=== PATIENT | female | born 1980 | race African-American/Black ===

== ENCOUNTER 2023-11-23 05:23 | Emergency (ER) | payer MEDICARE, SELFPAY ==
--- NOTE | ~2023-11-23 | CT_ITS ---
Non-contrast CT scan of the Abdomen and Pelvis Clinical indication: Left flank pain Technique: 2.5 mm axial scans were obtained through the abdomen and pelvis without intravenous or or al contrast. Dose reduction technique was used on this scan by utilizing automated exposure control a nd iterative reconstruction technique. The dose-length product (DLP) was 1408.72 mGy-cm. Findings: Images through the lung bases reveal no abnormalities. There is no evidence of renal or ureteral calculi. The kidneys and the ureters are nondilated. The liver, spleen, pancreas, gallbladder, and adrenals appear normal. There is no aortic aneurysm. There is no evidence of bowel obstruction. Images through the pelvis were performed. There is no evidence of ascites or lymphadenopathy. Urinary bladder unremarkable. No pelvic mass seen. Impression: No significant abnormality seen. Reviewed, dictated and finalized at [facility]. Impression: No significant abnormality seen.
[2023-11-23 05:30] VITALS: BP 150/93; PULSE 78; RESP 15; TEMP 36.8; O2SAT 100
--- NOTE | 2023-11-23 05:49 | ED.GENADULT ---
HPI - General Adult General Chief complaint: Abdominal Pain Stated complaint: left flank pain Time Seen by Provider: 11/23/23 05:39 History of Present Illness HPI narrative: Patient 43-year-old female who presents emergency department with chief complaint of left-sided flank pain. Patient reports that started having pain yesterday reports that some nausea but no vomiting reports that her last bowel movement was about 2 days ago patient reports she is currently on her menstrual cycle. The patient denies fever reports no prior history of kidney stones. Related Data Allergies Allergy/AdvReac Type Severity Reaction Status Date / Time No Known Allergies Allergy Verified 11/23/23 05:56 Review of Systems Review of Systems: A 10 system review of systems was completed on the patient and is negative except for what is stated in the HPI. Nursing and ancillary documentation was reviewed. Exam Narrative: GENERAL: Well-appearing, well-nourished, and in no acute distress. HEAD: Normocephalic, atraumatic. EYES: PERRLA and EOMI. ENT: Nares clear, no rhinorrhea or epistaxis. Mucous membranes moist. NECK: Supple. CHEST: Clear to auscultation. No respiratory distress. HEART: Regular rate and rhythm. No murmur heard. Normal peripheral pulses. ABDOMEN: Soft, nontender, nondistended, normal active bowel sounds. Flank: Left CVA tenderness EXTREMITIES: Normal range of motion. No edema. SKIN: Warm, dry, no rash. NEURO: No focal deficits. Alert and oriented x3. PSYCH: Normal mood and affect. Course Vital Signs Vital signs: Vital Signs Temperature 36.8 C 11/23/23 05:30 Pulse Rate 78 11/23/23 05:30 Respiratory Rate 15 11/23/23 05:30 Blood Pressure 150/93 H 11/23/23 05:30 Pulse Oximetry 100 11/23/23 05:30 Oxygen Delivery Room Air 11/23/23 05:30 Temperature 36.8 C 11/23/23 05:30 Pulse Rate 71 11/23/23 06:27 Respiratory Rate 15 11/23/23 06:27 Blood Pressure 141/88 H 11/23/23 06:27 Pulse Oximetry 99 11/23/23 06:27 Oxygen Delivery Room Air 11/23/23 05:30 Medical Decision Making MDM Narrative Medical decision making narrative: Differential diagnosis includes ureterolithiasis, UTI, pyelonephritis, intra-abdominal infection, colitis, diverticulitis Laboratory studies were obtained on the patient which showed a white count of 5.1 hemoglobin is 9.9 electrolytes are within normal limits urinalysis showed 2+ leukocyte esterase 21-50 white blood cells 1+ bacteria CT scan of the abdomen pelvis showed no acute abnormality Patient's pain was improved Patient given a g Rocephin in the emergency department and will be discharged home on Keflex. Vital Signs Vital Signs: Vital Signs Temperature 36.8 C 11/23/23 05:30 Pulse Rate 78 11/23/23 05:30 Respiratory Rate 15 11/23/23 05:30 Blood Pressure 150/93 H 11/23/23 05:30 Pulse Oximetry 100 11/23/23 05:30 Oxygen Delivery Room Air 11/23/23 05:30 Temperature 36.8 C 11/23/23 05:30 Pulse Rate 71 11/23/23 06:27 Respiratory Rate 15 11/23/23 06:27 Blood Pressure 141/88 H 11/23/23 06:27 Pulse Oximetry 99 11/23/23 06:27 Oxygen Delivery Room Air 11/23/23 05:30 Lab Data 11/23/23 05:49 11/23/23 05:49 Labs: Lab Results 11/23/23 11/23/23 11/23/23 Range/Units 05:48 05:49 06:12 WBC 5.1 (4.5-10.0) K/mm3 RBC 3.73 L (4.2-5.4) M/mm3 Hgb 9.9 L (12.0-15.0) g/dL Hct 31.7 L (37.0-47.0) % MCV 85.0 (80-100) fl MCH 26.5 (26-34) pg MCHC 31.2 L (32-36) g/dl RDW 17.0 H (11.5-14.5) % Plt Count 295 (150-375) k/mm3 MPV 9.9 (7.4-10.4) fl Immature Gran % (Auto) 0.6 H (0-0.5) % Neut % (Auto) 48.5 (45.5-73.1) % Lymph % (Auto) 43.2 (18.3-44.2) % Mcdowell % (Auto) 5.7 (2.6-8.5) % Eos % (Auto) 1.4 (0-4.4) % Baso % (Auto) 0.6 (0.2-1.2) % Lymph # (Auto) 2.20 (0.9-3.2) K/mm3 Mcdowell # (Auto) 0.3 (0.1-0.6) K/
[2023-11-23] MEDS: MORPHINE SULFATE (*CRX) 4 MG/ML INJ IV PUSH (05:57)
[2023-11-23] MEDS: ONDANSETRON INJ 4 MG/2 ML VIAL IV PUSH (05:57)
[2023-11-23] MEDS: SODIUM CHLORIDE 0.9% IV 1,000 ML 999 ML IV CONT (05:58)
[2023-11-23 06:02] LABS: Basophils Percent Auto 0.6 % (0.2-1.2); Eosinophils Absolute Auto 0.1 K/mm3 (0-0.3); Eosinophils Percent Auto 1.4 % (0-4.4); Hematocrit 31.7 % (37.0-47.0); Hemoglobin 9.9 g/dL (12.0-15.0); Immature Granulocyte Absolute 0.03 K/mm3 (0.00-0.031); Immature Granulocyte Percent A 0.6 % (0-0.5); Lymphocytes Percent Auto 43.2 % (18.3-44.2); Mean Corpuscular HGB Conc 31.2 g/dl (32-36); Mean Corpuscular Hemoglobin 26.5 pg (26-34); Mean Platelet Volume 9.9 fl (7.4-10.4); Monocytes Absolute Auto 0.3 K/mm3 (0.1-0.6); Monocytes Percent Auto 5.7 % (2.6-8.5); Neutrophils Absolute Auto 2.5 K/mm3 (1.3-6.7); Neutrophils Percent Auto 48.5 % (45.5-73.1); Platelet Count Result 295 k/mm3 (150-375); Red Blood Count 3.73 M/mm3 (4.2-5.4); White Blood Count 5.1 K/mm3 (4.5-10.0)
[2023-11-23 06:09] LABS: Bacteria Urine 1+ /hpf; RBC Urine >100 /hpf (0-2); Squamous Epithelial Cell Urine Occasional /hpf (Few); WBC Urine 21-50 /hpf (0-3)
[2023-11-23 06:14] LABS: BEDSIDEPREGUCG Negative
[2023-11-23 06:19] LABS: Alanine Aminotransferase 12 U/L (6-35); Albumin Level 4.3 g/dL (3.5-5.1); Alkaline Phosphatase 86 U/L (38-126); Anion Gap 10 mmol/L (4-12); Aspartate Amino Transferase 16 U/L (14-36); Bilirubin,Total 0.2 mg/dL (0.2-1.3); Blood Urea Nitrogen 9 mg/dL (7-17); Calcium 9.4 mg/dL (8.4-10.2); Carbon Dioxide 28 mmol/L (22-30); Chloride 100 mmol/L (98-107); Estimated CRCL calculation 125 ml/min; Estimated Glomerular Filt Rate > 60; Glucose 95 mg/dL (65-110); Lipase 137 U/L (23-300); Potassium 4.1 mmol/L (3.4-5.0); Sodium 138 mmol/L (137-145)
[2023-11-23 06:20] LABS: Add Urine Microscopic? YES; Appearance Urine Turbid (Clear); Bilirubin Urine 1+ (Negative); Blood Urine 3+ (Negative); Color Urine Red (Yellow); Glucose Urine UA Negative (Negative); Ketones Urine Negative (Negative); Leukocyte Esterase Ur 2+ LEU/UL (Negative); Nitrate Urine Negative (Negative); Protein Urine 2+ mg/dL (Negative); Specific Grav Ur 1.015 (1.001-1.035); Urobilinogen Urine 0.2 mg/dL (<2.0); pH Urine 7.5 (5.0-9.0)
[2023-11-23 06:27] VITALS: BP 141/88; PULSE 71; RESP 15; O2SAT 99
[2023-11-23 07:08] VITALS: BP 155/93; PULSE 67; RESP 15; O2SAT 100
[2023-11-23 07:39] VITALS: BP 142/88; PULSE 71; RESP 14; TEMP 36.6; O2SAT 98
== END 2023-11-23 07:42 | disposition home or self-care (01) ==
PROVIDERS: Emergency Provider Emergency Medicine; PCP Internal Medicine
DX: N39.0 Urinary tract infection, site not specified (principal); N12 Tubulo-interstitial nephritis, not specified as acute or chronic
CPT/HCPCS: 36415; 74176; 80053; 81001; 81025; 83690; 85025; 87086; 87088; 96361; 96365; 96375; 99284; J0696; J2270; J2405; J7030

== ENCOUNTER 2024-01-01 07:51 | Outpatient (CLI) | payer MEDICARE, SELFPAY ==
[2024-01-01 08:35] LABS: Basophils Percent Auto 0.4 % (0.2-1.2); Eosinophils Absolute Auto 0.1 K/mm3 (0-0.3); Eosinophils Percent Auto 1.4 % (0-4.4); Hematocrit 33.1 % (37.0-47.0); Hemoglobin 10.1 g/dL (12.0-15.0); Immature Granulocyte Absolute 0.02 K/mm3 (0.00-0.031); Immature Granulocyte Percent A 0.4 % (0-0.5); Lymphocytes Absolute Auto 2.13 K/mm3 (0.9-3.2); Lymphocytes Percent Auto 42.7 % (18.3-44.2); Mean Corpuscular HGB Conc 30.5 g/dl (32-36); Mean Corpuscular Volume 85.1 fl (80-100); Mean Platelet Volume 9.6 fl (7.4-10.4); Monocytes Absolute Auto 0.3 K/mm3 (0.1-0.6); Monocytes Percent Auto 5.4 % (2.6-8.5); Neutrophils Absolute Auto 2.5 K/mm3 (1.3-6.7); Neutrophils Percent Auto 49.7 % (45.5-73.1); Platelet Count Result 304 k/mm3 (150-375); Red Blood Count 3.89 M/mm3 (4.2-5.4); Red Cell Distribution Width 17.1 % (11.5-14.5)
[2024-01-01 08:47] LABS: Alanine Aminotransferase 11 U/L (6-35); Albumin Level 4.1 g/dL (3.5-5.1); Alkaline Phosphatase 70 U/L (38-126); Anion Gap 9 mmol/L (4-12); Aspartate Amino Transferase 16 U/L (14-36); Bilirubin,Total 0.1 mg/dL (0.2-1.3); Blood Urea Nitrogen 9 mg/dL (7-17); Calcium 8.9 mg/dL (8.4-10.2); Carbon Dioxide 25 mmol/L (22-30); Chloride 99 mmol/L (98-107); Cholesterol 190 mg/dL (0-200); Estimated Glomerular Filt Rate > 60; Glucose 155 mg/dL (65-110); HDL Direct 72 mg/dL; Sodium 133 mmol/L (137-145); Triglycerides 127 mg/dL (<150)
[2024-01-01 08:57] LABS: LDL Cholesterol Direct 77 mg/dL
[2024-01-01 09:09] LABS: Free T4 Free Thyroxine 0.94 ng/mL (0.78-2.19)
[2024-01-01 09:15] LABS: Thyroid Stimulating Hormone 0.941 uIU/mL (0.465-4.680); Total Triiodothyronine (T3) 1.03 NG/ML (0.97-1.69)
[2024-01-01 10:42] LABS: Hemoglobin A1C 5.8 % (<5.7)
== END 2024-01-01 07:52 | disposition home or self-care (01) ==
PROVIDERS: PCP Internal Medicine; Visit Provider Internal Medicine
DX: E78.5 Hyperlipidemia, unspecified (principal); E11.9 Type 2 diabetes mellitus without complications; E66.9 Obesity, unspecified
CPT/HCPCS: 36415; 80053; 80061; 83036; 84439; 84443; 84480; 85025

== ENCOUNTER 2024-02-04 00:35 | Day surgery (SDC) | payer MEDICARE, SELFPAY ==
[2023-12-01 13:45] VITALS: BMI 38.5
--- NOTE | 2023-12-24 09:18 | SUR.PREOP ---
Patient did not arrive at appointment time- RN called her at home. Patient states she threw up with her prep and did not complete it. Instructed to call to reschedule.
--- NOTE | 2023-12-24 10:43 | PC.NURSE ---
12/24/2023 Pt called and needed to reschedule- unable to tolerate prep and vomited a large portion of the first half. Recheduled to 02/04/2024 needs a Wednesday appt. due to work. Will order Zofran for nausea with next prep. per DR. Victoria.
[2024-02-04 10:24] VITALS: BP 153/89; PULSE 76; RESP 18; TEMP 36.9; O2SAT 100
--- NOTE | 2024-02-04 10:26 | P.PNAN_ITS ---
Anes - Initial Pre Proc Eval Procedure: Operation Date: 02/04/24 12:30 Proposed Procedures p Screening Colonoscopy - Art Field MD Date/Time: 02/04/24 10:26 Surgeon: Art Field MD Pre Op Diagnosis: Neoplasm screening Patient Data Age: 43 Gender: F Height: 1.65 m Weight: 104.7 kg Last Vital Signs Temp 36.9 C 02/04/24 10:24 Pulse 76 02/04/24 10:24 Resp 18 02/04/24 10:24 BP 153/89 H 02/04/24 10:24 Pulse Ox 100 02/04/24 10:24 O2 Del Method Room Air 02/04/24 10:24 Allergies Allergy/AdvReac Type Severity Reaction Status Date / Time No Known Allergies Allergy Verified 02/04/24 10:21 Home Medications Medication Instructions Recorded Confirmed Type atorvastatin 10 mg tablet 10 mg PO DAILY 12/01/23 02/04/24 History metformin 500 mg tablet,extended 500 mg PO BID 12/01/23 02/04/24 History release 24 hr Patient hx anesthesia problems: none Family hx anesthesia problems: none Results Review: All pre-operative results and documents have been reviewed as part of the pre- operative evaluation. [facility] Past Medical History Medical History (Updated 02/04/24 @ 10:27 by Uriel Muro MD) Diabetes Obesity Social History Social History Smoking status: Never smoker Alcohol intake: current Drinks per week: 1 Substance use: never Substance use type: does not use Living arrangements: with family Spiritual care concerns: No Anes - Eval Final PreProcedure Day of Procedure 02/04/24 10:26 Patient weight: obese Heart: regular rate and rhythm Lungs: clear to auscultation Airway: Mallampati scale class II Neurological: alert and oriented Last oral intake: >/= 8 hours ASA classification: III Emergent: no Anesthetic plan: proceed Anesthesia type and monitoring: general GIVS and standard monitoring Results Review: All pre-operative results and documents have been reviewed as part of the pre- operative evaluation. Informed Consent: The patient's anesthetic plan and its attendant risks and benefits were discussed with the patient/family/POA. Questions were solicited and answers provided to the satisfaction of the patient/family/POA.
[2024-02-04] MEDS: LACTATED RINGERS 1,000 ML 150 ML IV CONT (10:35)
[2024-02-04 10:36] LABS: Glucose Point of Care 111 mg/dl (65-105)
--- NOTE | 2024-02-04 10:51 | PM.HPGS ---
History of Present Illness History of Present Illness Consent: Risks, benefits, and alternatives have been discussed and questions answered. Patient agrees to proceed with procedure. Chief complaint: Neoplasm screening Narrative: Caroline Mix is a 43 year old female here for first colonoscopy, h/o constipation and grandparent had colon cancer Review of Systems Review of Systems: All systems reviewed & are unremarkable except as noted in HPI and below PMFSH Past Medical History Medical History (Updated 02/04/24 @ 10:53 by Art Field MD) Constipation Diabetes Obesity Social History Social History Smoking status: Never smoker Alcohol intake: current Drinks per week: 1 Substance use: never Substance use type: does not use Living arrangements: with family Spiritual care concerns: No Meds Home Medications and Allergies Home Medications Medication Instructions Recorded Confirmed Type atorvastatin 10 mg tablet 10 mg PO DAILY 12/01/23 02/04/24 History metformin 500 mg tablet,extended 500 mg PO BID 12/01/23 02/04/24 History release 24 hr Allergies Allergy/AdvReac Type Severity Reaction Status Date / Time No Known Allergies Allergy Verified 02/04/24 10:21 Vital Signs Vital Signs - 24 hr 02/04/24 10:24 Temperature 98.4 F Pulse Rate 76 Respiratory Rate 18 Blood Pressure 153/89 H Pulse Oximetry 100 Oxygen Delivery Room Air Exam Const: General: comfortable and no acute distress HENMT: Face/Nose/Sinus: Normal nares present Eyes: General: appearance normal, both eyes and all related structures Neck: Neck: no JVD Resp: Auscultation: clear to auscultation bilaterally Cardio: Rate: regular rate Rhythm: regular rhythm GI: Inspection: non-distended GI Palp: Yes Soft to palpation Skin: General skin exam: normal color Neuro: General: gait normal Speech: normal speech Extrem: General: normal to inspection Psych: Mental Status: mental status grossly normal Assessment and Plan Assessment and plan (1) Constipation: Code(s): K59.00 - Constipation, unspecified Status: Acute Assessment and Plan: colonoscopy
[2024-02-04 11:13] VITALS: BP 104/77; PULSE 87; RESP 26; O2SAT 100
[2024-02-04 11:23] VITALS: BP 123/81; PULSE 79; RESP 27; O2SAT 100
[2024-02-04 11:33] VITALS: BP 136/80; PULSE 71; RESP 22; O2SAT 100
== END 2024-02-04 11:40 | disposition home or self-care (01) ==
PROVIDERS: PCP Internal Medicine; Visit Provider Internal Medicine Gastroenterology
PROC: 0DJD8ZZ Inspection of Lower Intestinal Tract, Via Natural or Artificial Opening Endoscopic (ICD-10-PCS; CPT 45378; principal; 2024-02-04 12:30)
DX: Z12.11 Encounter for screening for malignant neoplasm of colon (principal); E11.9 Type 2 diabetes mellitus without complications; E66.9 Obesity, unspecified; Z68.38 Body mass index [BMI] 38.0-38.9, adult; Z79.84 Long term (current) use of oral hypoglycemic drugs; Z80.0 Family history of malignant neoplasm of digestive organs
CPT/HCPCS: G0105; 82948; J2003; J2704; J7120

== ENCOUNTER 2024-05-02 07:26 | Outpatient (CLI) | payer MEDICARE, SELFPAY ==
[2024-05-02 08:09] LABS: Basophils Percent Auto 0.4 % (0.2-1.2); Eosinophils Absolute Auto 0.2 K/mm3 (0-0.3); Eosinophils Percent Auto 3.8 % (0-4.4); Hematocrit 32.4 % (37.0-47.0); Hemoglobin 10.1 g/dL (12.0-15.0); Immature Granulocyte Absolute 0.03 K/mm3 (0.00-0.031); Immature Granulocyte Percent A 0.6 % (0-0.5); Lymphocytes Absolute Auto 2.08 K/mm3 (0.9-3.2); Lymphocytes Percent Auto 41.4 % (18.3-44.2); Mean Corpuscular HGB Conc 31.2 g/dl (32-36); Mean Corpuscular Hemoglobin 26.9 pg (26-34); Mean Corpuscular Volume 86.2 fl (80-100); Monocytes Absolute Auto 0.3 K/mm3 (0.1-0.6); Monocytes Percent Auto 6.2 % (2.6-8.5); Neutrophils Absolute Auto 2.4 K/mm3 (1.3-6.7); Neutrophils Percent Auto 47.6 % (45.5-73.1); Platelet Count Result 282 k/mm3 (150-375); Red Blood Count 3.76 M/mm3 (4.2-5.4); Red Cell Distribution Width 15.1 % (11.5-14.5)
[2024-05-02 10:33] LABS: Creatinine Urine 320.2 mg/dL
[2024-05-02 10:37] LABS: MALB Creatinine Ratio 9.1 mg/g (0-30)
[2024-05-02 11:36] LABS: Cholesterol 147 mg/dL (0-200); HDL Direct 50 mg/dL; Triglycerides 103 mg/dL (<150)
[2024-05-02 11:57] LABS: LDL Cholesterol Direct 58 mg/dL
[2024-05-02 16:34] LABS: Iron 49 ug/dL (37-170)
[2024-05-02 16:44] LABS: Percent Iron Saturation 15 % (20-50)
[2024-05-02 19:15] LABS: Hemoglobin A1C 6.5 % (<5.7)
== END 2024-05-02 07:27 | disposition home or self-care (01) ==
PROVIDERS: PCP Internal Medicine; Visit Provider Internal Medicine
DX: E78.5 Hyperlipidemia, unspecified (principal); E11.9 Type 2 diabetes mellitus without complications; D64.9 Anemia, unspecified
CPT/HCPCS: 36415; 80061; 82043; 82728; 83036; 83540; 83550; 85025

== ENCOUNTER 2024-08-23 07:36 | Outpatient (CLI) | payer MEDICARE, SELFPAY ==
--- OUTSIDE RECORDS SUMMARY | 2024-08-23 07:42 | XMS_ITS | Clinical Summary ---
Author Organization [facility] Care Team Providers Care Repair Servicer Name Role Phone Unavailable Primary Care Provider Unavailabl e Social History Tobacco Use Types Packs/Day Years Used Date Smoking Tobacco: Never Assessed Comments Unknown Sex and Gender Information Value Date Recorded Sex Assigned at Not on file Legal Sex Female 3:17 PM CDT Gender Identity Not on file Sexual Orientation Not on file Plan of Treatment Health Maintenance Due Date Last Done Comments Hepatitis C Virus (HCV) Screening 1982 TdaP Immunization 1982 Hepatitis B Immunization (1 of 3 - 19+ 3-dose series) 2001 Pap Smear 10/01/2003 Cervical Cancer Screening (CCS) 2012 HPV/Cotest 2012 Discussion re Starting/Frequency of Mammograms 2022 Influenza Immunization (#1) 2023 SARS-COV-2 Immunization ( season) 2023 Respiratory Syncytial Virus (RSV) Immunization (Adult) (1 - 1-dose 75+ series) 2057 DTaP/Tdap/Td Immunization Discontinued 2000, 08/28/1987, 08/31/1986, Additional history exists Meningococcal Immunization (ACWY) Aged Out No longer eligible based on patient's age to complete this topic Pneumococcal Immunization Combined Aged Out No longer eligible based on patient's age to complete this topic Rotavirus Immunization Aged Out No lo nger eligible based on patient's age to complete this topic
--- OUTSIDE RECORDS SUMMARY | 2024-08-23 07:42 | XMS_ITS | Clinical Summary ---
Author Organization [facility] Mayi [facility]haopin Address [address] [place] [address] Care Team Providers Care Fork Repairer Name Role Phone Unavailable Primary Care Provider Unavailabl e Source Comments [facility],non-owned Affiliates and Associated Physician Practices is amultiple site organization consisting of ambulatory clinics and hospital sitesin [place], [place], [place] and [place]. This disclosure is being madepursuant to the Care Everywhere program and may not contain all information available regarding this patient. Last updated 18.[facility] Medications * Be aware that medications may not be up to date on this document. Alwaysverify current medications with the patient. rivaroxaban (XARELTO) 15 MG tablet Take 15 mg by mouth daily with food Active norethindrone (ORTHO MICRONOR; NOR-QD; CINDY; RAHEEM; RAMAKRISHNA-BE; TINA; JOLIVETTE) 0.35 MG tablet Take 0.35 mg by mouth once daily Active Family History Medical History Relation Name Comments Diabetes - Type 2 Father Diabetes - Type 2 Mother Relation Name Status Comments Father Mother Social History Tobacco Use Types Packs/Day Years Used Date Smoking Tobacco: Never Tobacco Cessation:Counseling Given: No Alcohol Use Standard Drinks/Week Comments Not Asked 0 (1 standard drink = 0.6 oz pur e alcohol) Comments Unknown Sex and Gender Information Value Date Recorded Sex Assigned at Not on file Legal Sex Female 8:54 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 ASSESSOR Gender Identity Not on file Sexual Orientation Not on file Plan of Treatment Health Maintenance Due Date Last Done Comments LIPID TESTING 1982 MAMMOGRAM 1982 HIV SCREENING 1997 HEPATITIS C SCREENING 09/25/2000 DTAP/TDAP/TD VACCINES (1 - Tdap) 2001 HEPATITIS B VACCINE (1 of 3 - 19+ 3-dose series) 2001 COVID-19 VACCINE (1 - 2023-2 5 season) 2023 DEPRESSION SCREENING 04/19/2024 INFLUENZA VACCINE (Season Ended) 2024 ZOSTER VACCINE (1 of 2) 2032 HIB VACCINE Aged Out No longer eligi ble based on patient's age to complete this topic HPV VACCINE Aged Out No longer eligi ble based on patient's age to complete this topic MENINGOCOCCAL (Group B) VACC INE SHARED DECISION-MAKING Aged Out No longer eligibl e based on patient's age to complete this topic MENINGOCOCCAL GROUPS A/C/Y/W VACCINE Aged Out No longer eligible b ased on patient's age to complete this topic PNEUMOCOCCAL VACCINE Aged Out No long er eligible based on patient's age to complete this topic Insurance
--- OUTSIDE RECORDS SUMMARY | 2024-08-23 07:42 | XMS_ITS | Encounter Summary ---
Author Organization [facility] Address Formerly [facility] [place] [address] Care Team Providers Care Barrel Assembly Inspector Name Role Phone Aliza Houston MD Primary Care Provider [phone] Encounter Details Date Type Department Care Team (Latest Contact Info) Description 12/30/2023 Huaatt Message Enc [facility] [place] [address] [place] [address] [address] [place] [address] [place] [address] [place] [address] [address] [place], [place] [id number] Blood pressure pills Social History Tobacco Use Types Packs/Day Years Used Date Smoking Tobacco: Never Smokeless Tobacco: Never Comments:Counseled by Dr. Radha freedman. AUDIT-C Answer Date Recorded Q1: How often do you have a drink containing alc ohol? Monthly or less 12/27/2023 Q2: How many drinks containi ng alcohol do you have on a typical day when you are drinking? 3 or 4 12/27/2023 Q3: How often do you have si x or more drinks on one occasion? Never 12/27/2023 PHQ-2 Answer Date Recorded Patient Health Questionnaire-2 Score 0 12/27/2023 Comments Unknown Sex and Gender Information Value Date Recorded Sex Assigned at Not on file Legal Sex Female 1:50 AM CDT Gender Identity Not on file Sexual Orientation Not on file documented as of this encounter Plan of Treatment Not on file documented as of this encounter Visit Diagnoses Not on filedocumented in this encounter Additional Health Concerns Assessment Noted Time PHQ-9 Depression Total Score: 0 09/09/20 24 8:40 AM CDT documented as of this encounter Care Teams Barrel Assembly Inspector Relationship Specialty Start Date End Date Aliza Houston MD [facility] [address] [address] PCP - General INTERNAL MEDICINE 12/07/23 documented as of this encounter
--- OUTSIDE RECORDS SUMMARY | 2024-08-23 07:42 | XMS_ITS | Clinical Summary ---
Author Organization [facility] Address [address] [place] [address] Care Team Providers Care Operators Teacher Name Role Phone Aliza Houston MD Primary Care Provider [phone] Allergies Active Allergy Reactions Criticality Noted Date Comments Nitrofurantoin Hives,Rash High 06/03/2022 Medications MOUNJARO 2.5 MG/0.5ML injection Inject 2.5 mg weekly for 4 weeks then 5mg weekly for 4 weeks 12/23/2023 Active tirzepatide (MOUNJARO) 5 MG/0.5ML injection Inject 5mg weekly for 4 weeks then inject 10mg weekly for 4 weeks 12/23/2023 Active ondansetron (ZOFRAN) 4 MG tabletIndication s:Nausea Take 1 tablet (4 mg total) by mouth every 12 (twelve) hours as needed for Nausea. 20 tablet 12/27/2023 Active fluconazole (DIFLUCAN) 150 MG tabletIndication s:Yeast infection Take 1 tablet (150 mg total) by mouth daily. 2 tablet 12/27/2023 Active atorvastatin (LIPITOR) 10 MG tabletIndication s:Hyperlipidemia associated with type 2 diabetes mellitus ([facility] HHS/HCC) TAKE 1 TABLET(10 MG) BY MOUTH DAILY 90 tablet 06/06/2024 Active metFORMIN ER (GLUCOPHAGE-XR) 500 MG 24 hr tabletIndication s:Type 2 diabetes mellitus with hyperglycemia, without long-term current use of insulin ([facility] HHS/HCC) TAKE 1 TABLET(500 MG) BY MOUTH TWICE DAILY WITH MEALS 180 tablet 1 06/06/2024 Active losartan (COZAAR) 50 MG tabletIndication s:Hypertension associated with type 2 diabetes mellitus (CMS/HCC HHS/HCC) TAKE 1 TABLET(50 MG) BY MOUTH DAILY 90 tablet 06/06/2024 Active Encounters Date Type Department Care Team Description 06/12/2024 Telephone [facility] [address] [place] [address] Aliza Houston MD Follow Up 06/06/2024 [facility] [address] [place] [address] Aliza Houston MD Follow Up Call; Appointment Request from Last 3 Months Social History Tobacco Use Types Packs/Day Years Used Date Smoking Tobacco: Never Smokeless Tobacco: Never Tobacco Cessation:Counseling Given: Yes Comments:Counseled by Dr. Houston. AUDIT-C Answer Date Recorded Q1: How often [...] on file Sexual Orientation Not on file Last Filed Vital Signs Vital Sign Reading Time Taken Comments Blood Pressure 161/103 12/27/2023 7:56 AM CDT Pulse 76 12/27/2023 7:34 AM CDT Temperature 36.6 C (97.9 F) 12/27/2023 7:34 AM CDT Respiratory Rate 18 12/27/2023 7:34 AM CDT Oxygen Saturation 100% 12/27/2023 7:34 AM CDT Inhaled Oxygen Concentration - - Weight 106.1 kg (234 lb) 12/27/2023 7:34 AM CDT Height 165.1 cm (5' 5 ) 12/27/2023 7:34 AM CDT Body Mass Index 38.94 12/27/2023 7:34 AM CDT Plan of Treatment Health Maintenance Due Date Last Done Comments Cervical Cancer Screening Pap Smear (Age 30 to 64) Every 3 Years 1982 Kidney Health Evaluation 1982 Lipid Panel 1982 DTaP, Tdap and Td Vaccines (6 - Tdap) 07/22/2000 07/21/2000, 07/21/2000, 08/28/1987, Additional history exists Hepatitis C 2000 Hepatitis B Vaccines (1 of 3 - 19+ 3-dose series) 2001 Pneumococcal Vaccine: Pediatrics (0 to 5 Years) and At-Risk Patients (6 to 49 Years) (1 of 2 - PCV) 2001 Cervical Cancer Screening Pap with HPV Testing (Age 30 to 64) Every 5 Years 2012 Cervical Cancer Screening with HPV 2012 Mammogram Screening 2022 COVID-19 Vaccine (2023- season) 2023 02/05/2021, 02/05/2021, 01/15/2021, Additional history exists Hemoglobin A1C 02/26/2024 08/26/2023 PHQ-2 (Physician [place]) 04/19/2024 12/27/2023 Annual Physical 12/26/2024 12/27/2023 Diabetes: Retinopathy Eye Exam 10/14/2025 10/15/2023 HPV Vaccines Aged Out No longer eligi ble based on patient's age to complete this topic Meningococcal B Vaccine Aged Out No l onger eligible based on patient's age to complete this topic Meningococcal Vaccine Aged Out No linh patel eligible based on patient's age to complete this topic RSV Immunizations Under 20 Months Aged Out No longer eligible based on patient's age to complete this topic Procedures Procedure Name Priority Date/Time Associated Diagnosis Comments DIABETIC RETINOPATHY EXAM (NEGATIVE)(SCAN ORDER) Routine 10/15/2023 HEMOGLOBIN, GLYCOSYLATED Routine 08/26/2023 from Last 3 Months or Most Recently Relevant to Health Maintenance Results * DIABETIC RETINOPATHY EXAM (NEGATIVE) (10/15/2023) [facility] Scanned SCANNING Final Resu lt [facility] * HEMOGLOBIN, GLYCOSYLATED (08/26/2023) HGB A1C 6.5 % 08/26/2023 us Default History Genericprovider LABORATORY Final Result from Last 3 Months or Most Recently Relevant to Health Maintenance Care Teams Operators Teacher Relationship Specialty Start Date End Date Aliza Houston MD [facility] [address] [address] PCP - General INTERNAL MEDICINE 12/07/23
--- OUTSIDE RECORDS SUMMARY | 2024-08-23 07:42 | XMS_ITS | CONTINUITY OF CARE DOCUMENT ---
Author Name emiliaemilia Address Unknown Organization [facility] Address [address] [place] [address] Phone [phone] Care Team Providers Care Psychological Assistant Name Role Phone Rocky PETERSON, Wes Unavailable MIRA PETERSON, DANGELO Unavailable Unav iram DEVINE MD, [facility] Unavailable INSURANCE PROVIDERS Payer name Policy type / Coverage type [place] red green party ID [employer] Medicaid 0 [id number] [place] [employer] Medicare [id number]
--- OUTSIDE RECORDS SUMMARY | 2024-08-23 07:42 | XMS_ITS | Data Portability ---
[facility] Address [address] [place] [address] Care Team Providers Care Piece Dyer Name Role Phone JAMMIE WILDER Primary Care Provider [phone] Assessment Encounter Date Assessment Date Assessment LastModified by Organization Details LastModified Time 08/20/2023 08/20/2023 Diabetic eye exa mMalvin Blood work. Women's health visit. To include Pap and mammogram follow-up 4 months continue current therapy [email or web address] Not available 09/05/2023 16:33:28 12/23/2023 12/23/2023 no contraindications to GLP 1 therapy we will try to get alverto proved. She is seeing a new clay carman and she will get her pelvic exams there we will schedule a mammogram her request I will see her back in about 3 or 4 months dyslipidemia diabetes obesity discussed in detail [email or web address] Not available 12/23/2023 21:31:06 05/01/2024 05/01/2024 CBC CMP lipid hemoglobin A1c urinary microalbumin iron ferritin TIBC we will set up with Podiatry for diabetic foot exam titrate her Mobenji set her up with SI HF gynecology see me in 4 months healthy lifestyle care instructions [email or web address] Not available 05/07/2024 21:04:29 Plan of Treatment Reminders Order Date Submit Date Provider Last Modified By Organization Details Last Modified Time Details Appointments ANY 15 2024 09:15A M Jammie Wilder MD Not available Not available Not available Lab culture , urine 2024 02/03/2 025 [facility], [address], [place], [address], 05/24/2024 03:08:18 urinaly sis, dipstic k 2024 025 [facility] In-Office Order, Internal Use Only DO Not Attach Compendium DO Not Attach Compendium, Do Not Delete/merge, [id number] 05/24/2024 16:49:28 cytolog y report, thin prep, smear or scrapin g, cervica l or vaginal 2024 025 [facility], [address], [place], [address], 05/25/2024 09:48:00 vaginal pathoge ns panel, TONNY+pro be, vaginal fluid [address] [facility], [address], [place], [address], 05/24/2024 05:09:24 HbA1c (hemogl obin A1c), blood [address] [facility], [address], [place], [address], 05/03/2024 08:25:20 albumin /creati nine, mass ratio, urine [address] [facility], [address], [place], [address], 05/02/2024 13:13:10 CBC w/ auto diff 2024 025 [facility], [address], [place], [address], 05/02/2024 11:24:01 CMP, serum or plasma 2024 025 [facility], [address], [place], [address], 08/15/2024 14:04:52 lipid panel, serum 2024 025 [facility], [address], [place], [address], 05/04/2024 12:09:16 iron + total iron-bi nding capacit y (TIBC), serum [address] [facility], [address], [place], [address], 05/03/2024 02:57:08 ferriti n, serum or plasma [address] [facility], [address], [place], [address], 06/07/2024 16:44:43 vitamin D, 25-hydr oxy, total, serum 2024 025 [facility], [address], [place], [address], 08/03/2024 15:13:05 CMP, serum or plasma [address] [facility], [address], [place], [address], 01/03/2024 15:19:46 CBC w/ auto diff [address] [facility], [address], [address], [place], [address], 01/03/2024 15:19:47 TSH, ultra-s ensitiv e, serum [address] [facility], [address], [place], [address], 01/03/2024 15:19:47 unliste d lab - T4, free [address] [facility], [address], [place], [address], 01/03/2024 15:19:47 unliste d lab - T3 2023 024 [facility], [address], [address], [place], [address], 01/03/2024 15:19:47 HbA1c (hemogl obin A1c), blood 2023 024 [email or web address], [address], [address], [place], [address], 01/13/2024 16:52:55 lipid panel, serum 2023 024 [facility], [address], [place], [address], 01/03/2024 15:19:47 TSH, ultra-s ensitiv e, serum 2023 024 [facility], [address], [address], [place], [address], 08/27/2023 13:14:52 T3, free, serum or plasma 2023 024 [facility], [address], [address], [place], [address], 08/27/2023 13:14:54 unliste d lab - T4, free 2023 024 [facility], [address], [address], [place], [address], 08/27/2023 13:14:50 vitamin D, 25-hydr oxy, total, serum 2023 024 [facility], [address], [address], [place], [address], 08/27/2023 13:14:54 HbA1c (hemogl obin A1c), blood 2023 024 [facility] [address], [address], [place], [address], 08/27/2023 13:14:52 CBC w/ auto diff 2023 024 [facility], [address], [address], [place], [address], 08/27/2023 13:14:53 lipid panel, serum 2023 024 [facility], [address], [place], [address], 08/27/2023 13:14:50 CMP, serum or plasma 2023 024 [facility], [address], [place], [address], 08/27/2023 13:14:51 HbA1c (hemogl obin A1c), blood 2022 023 [email or web address] In-Office Order, Internal Use Only DO Not Attach Compendium DO Not Attach Compendium, Do Not Delete/merge, [id number] 11/26/2022 09:32:03 Referral podiatr ist referra l 2024 025 [facility]ANS Mario Linton Jr DPM, [address], [address], [place], [address], 07/20/2024 12:13:49 gynecol ogist referra l 2024 025 [facility] [address] [place], [address], 05/19/2024 08:44:40 Procedures colonos copy screeni ng (PROC) 2023 024 [facility], [address], [address], [place], [address], 05/02/2024 13:02:43 Surgeries None recorde d. Imaging MAMMO, screeni paula ann al 2023 024 [facility] (Imaging), [address], [place], [address], 02/21/2024 16:36:02 Medication Orders metroni dazole 0.75 % (37.5 mg/5 gram) vaginal gel 2024 025 [facility], [address], [place], [place], [id number], 05/22/2024 10:06:39 Mounjar o 7.5 mg/0.5 mL subcuta neous pen injecto r [address] [id number], [address], [place], [id number], 07/13/2024 09:26:38 Mounjar o 2.5 mg/0.5 mL subcuta neous pen injecto r 2023 025 [facility], [address] [place], [place], [id number], 05/01/2024 10:51:27 Mounjar o 5 mg/0.5 mL subcuta neous pen injecto r 2023 024 [email or web address], [address] [place], [place], [id number], 05/01/2024 10:50:31 Patient TargetsNo targets recorded. Patient Instructions Encounter Date Encounter Id Patient Instructions Last Modified By Organization Details Last Modified Time 11/26/2022 [id number] A healthy lifestyle: care instructions [email or web address] Not available 11/26/2022 09:32:03 08/20/2023 [id number] diabetic eye exam* [email or web address] Not available 11/18/2023 11:29:29 05/01/2024 [id number] A healthy lifestyle: care instructions [email or web address] Not available 05/01/2024 10:25:54 05/22/2024 [id number] Attending Physician Attestation S: 43 yo F here for well woman exam. Has mild dysuria at end of stream. Still getting monthly menses but getting heavier and more painful. Last Pap with LSIL and neg HPV in 2021. O: Yellowish white discharge on speculum exam. A/P: Well woman exam - Co-testing done. Mammo ordered by PCP. Abnormal vaginal discharge - F/u NuSwab. Can treat empirically for BV given history of recurrent BV. Dysuria - F/u dipstick, UCx. {{I did not personally see or examine the patient with the resident. I was physically present to provide indirect supervision through entire encounter.* I personally saw the patient with the resident.}} Plan discussed with resident as documented in my brief note above. Catrina Santos MD [email or web address] Not available 05/22/2024 10:03:47 Reason for Referral Bottom Presser Referral for Type 2 diabetes mellitus Referring Physician: Jammie Wilder, Internal Medicine, Encounter Date: 05/01/2024 Manager Of Compensation Referral for Gy necologic examination Referring Physician: Jammie Wilder, Internal Medicine, Encounter Date: 05/01/2024 Results Created Date Observation Date Name Description Value Unit Range Abnormal Flag Note LastModifiedBy Organization Detail LastModifiedTime 10/28/1911/02/2022 URINE CULTU LIVE BLANTON urine culture, routine FINAL REPORT abnormal Not Available [facility] ([facility]) [address], [place], [address], 11/02/2022 13:08:38 10/28/1911/02/2022 URINE CULTU LIVE BLANTON result 1 ESCHER ICHIA COLI abnormal 25,00 0-50, 000 colon y formi ng units per mL Cefaz lillian <=4 ug/mL Cefaz lillian with an ALISHA <=16 predi cts susce ptibi lity to the oral agent s cefac edmond, cefdi jenny, cefpo doxim e, cefpr ozil, cefur oxime , cepha lexin , and lorac arbef when used for thera py of uncom plica braxton urina ry tract infec tions due to E. coli, Klebs iella pneum oniae , and Prote us mirab ilis. Not Available [facility] ([facility]) [address] [facility], [place], [address], 11/02/2022 13:08:38 10/28/19 23 11/02/2022 URINE CULTU RE, ROUTI NE antimicrobia l susceptibili ty COMMEN T S = Susce ptibl e; I = Inter media te; R = Resis tant P = Posit celestine; N = Negat celestine MICS are expre ssed in micro grams per mL Antib iotic RSLT# 1 RSLT# 2 RSLT# 3 RSLT# 4 Amoxi cilli n/Cla vulan ic Acid S Ampic illin R Cefep jewel S Ceftr iaxon e S Cefur oxime S Cipro floxa iam S Ertap enem S Genta micin R Imipe nem S Levof loxac in S Merop enem S Nitro furan toin S Piper acill in/Ta zobac adams S Tetra cycli ne R Tobra mycin I Trime thopr im/Rodriguez lfa R Not Available [facility] ([facility]) [address] [facility], [place], [address], 11/02/2022 13:08:38 10/28/19 23 10/27/2022 urina lysis , dipst ick Leukocytes Small Not Available In-Offi ce Order Internal Use Only DO Not Attach Compendium DO Not Attach Compendium, Do Not Delete/merge, [id number] 10/27/2022 09:16:39 10/28/19 23 10/27/2022 urina lysis , dipst ick Nitrite negati ve Not Available In-Office Order Internal Use Only DO Not Attach Compendium DO Not Attach Compendium, Do Not Delete/merge, [id number] 10/27/2022 09:16:39 10/28/19 23 10/27/2022 urina lysis , dipst ick Urobilinogen .2 Not Available In-Of fice Order Internal Use Only DO Not Attach Compendium DO Not Attach Compendium, Do Not Delete/merge, 10/27/2022 09:16:39 10/28/19 23 10/27/2022 urina lysis , dipst ick Protein 30 Not Available In-Office Order Internal Use Only DO Not Attach Compendium DO Not Attach Compendium, Do Not Delete/merge, 10/27/2022 09:16:39 10/28/19 23 10/27/2022 urina lysis , dipst ick pH 6.0 Not Available In-Office Order Internal Use Only DO Not Attach Compendium DO Not Attach Compendium, Do Not Delete/merge, 10/27/2022 09:16:39 10/28/19 23 10/27/2022 urina lysis , dipst ick Blood Small Not Available In-Office Order Internal Use Only DO Not Attach Compendium DO Not Attach Compendium, Do Not Delete/merge, 10/27/2022 09:16:39 10/28/19 23 10/27/2022 urina lysis , dipst ick Specific [place] 1.025 Not Available In-Off ice Order Internal Use Only DO Not Attach Compendium DO Not Attach Compendium, Do Not Delete/merge, 10/27/2022 09:16:39 10/28/19 23 10/27/2022 urina lysis , dipst ick Ketone Negati ve Not Available In-Office Order Internal Use Only DO Not Attach Compendium DO Not Attach Compendium, Do Not Delete/merge, 10/27/2022 09:16:39 10/28/19 23 10/27/2022 urina lysis , dipst ick Bilirubin Negati ve Not Available In-Office Order Internal Use Only DO Not Attach Compendium DO Not Attach Compendium, Do Not Delete/merge, 10/27/2022 09:16:39 10/28/19 23 10/27/2022 urina lysis , dipst ick Glucose Negati ve Not Available In-Office Order Internal Use Only DO Not Attach Compendium DO Not Attach Compendium, Do Not Delete/merge, 10/27/2022 09:16:39 10/28/19 23 10/27/2022 urina lysis , dipst ick Appearance Slight ly Cloudy Not Available In-Office Order Internal Use Only DO Not Attach Compendium DO Not Attach Compendium, Do Not Delete/merge, [id number] 10/27/2022 09:16:39 10/28/19 23 10/27/2022 urina lysis , dipst ick Color Yellow Not Available In-Office Order Internal Use Only DO Not Attach Compendium DO Not Attach Compendium, Do Not Delete/merge, [id number] 10/27/2022 09:16:39 11/27/19 23 11/26/2022 HbA1c (hemo globi n A1c), blood HbA1c 6.2% Not Available In-Office Order Internal Use Only DO Not Attach Compendium DO Not Attach Compendium, Do Not Delete/merge, [id number] 11/26/2022 09:07:02 08/26/19 24 08/27/2023 LIPID PANEL cholesterol, total 209 mg/dL 100-19 9 above high normal Not Available [facility] ([facility]) [address] [place], [address], 08/27/2023 13:14:50 08/26/19 24 08/27/2023 LIPID PANEL triglyceride s 69 mg/dL 0-149 Not Available [facility] ([facility]) [address] [facility], [place], [address], 08/27/2023 13:14:50 08/26/19 24 08/27/2023 LIPID PANEL HDL cholesterol 78 mg/dL >39 Not Available [facility] ([facility]) [address] [place], [address], 08/27/2023 13:14:50 08/26/19 24 08/27/2023 LIPID PANEL VLDL cholesterol bishop 12 mg/dL 5-40 Not Available [facility] ([facility]) [address] [place], [address], 08/27/2023 13:14:50 08/26/19 24 08/27/2023 LIPID PANEL LDL chol calc ([facility]) 119 mg/dL 0-99 above high normal Not Available [facility] ([facility]) [address] [place], [address], 08/27/2023 13:14:50 08/26/19 24 08/27/2023 T4, FREE T4,free(dire ct) 1.29 NG/dL 0.82-1 .77 Not Available [facility] ([facility]) [address] [place], [address], 08/27/2023 13:14:50 08/26/19 24 08/27/2023 COMP. METAB OLIC PANEL (14) glucose 89 mg/dL 70-99 Not Available [facility] ([facility]) [address] [place], [address], 08/27/2023 13:14:51 08/26/19 24 08/27/2023 COMP. METAB OLIC PANEL (14) BUN 10 mg/dL 6-24 Not Available [facility] ([facility]) [address] [place], [address], 08/27/2023 13:14:51 08/26/19 24 08/27/2023 COMP. METAB OLIC PANEL (14) creatinine 0.72 mg/dL 0.57-1 .00 Not Available [facility] ([facility]) [address] [place], [address], 08/27/2023 13:14:51 08/26/19 24 08/27/2023 COMP. METAB OLIC PANEL (14) eGFR 108 mL/mi n/1.7 3 >59 Not Available [facility] ([facility]) [address] [place], [address], 08/27/2023 13:14:51 08/26/19 24 08/27/2023 COMP. METAB OLIC PANEL (14) BUN/creatini ne ratio 14 9-23 Not Available [facility] ([facility]) [address] [place], [address], 08/27/2023 13:14:51 08/26/19 24 08/27/2023 COMP. METAB OLIC PANEL (14) sodium 138 mmol/ L 134-14 4 Not Available [facility] ([facility]) [address] [place], [address], 08/27/2023 13:14:51 08/26/19 24 08/27/2023 COMP. METAB OLIC PANEL (14) potassium 4.3 mmol/ L 3.5-5. 2 Not Available [facility] ([facility]) [address] [place], [address], 08/27/2023 13:14:51 08/26/19 24 08/27/2023 COMP. METAB OLIC PANEL (14) chloride 102 mmol/ L 96-106 Not Available [facility] ([facility]) [address] [place], [address], 08/27/2023 13:14:51 08/26/19 24 08/27/2023 COMP. METAB OLIC PANEL (14) carbon dioxide, total 21 mmol/ L 20-29 Not Available [facility] ([facility]) [address] [place], [address], 08/27/2023 13:14:51 08/26/19 24 08/27/2023 COMP. METAB OLIC PANEL (14) calcium 9.6 mg/dL 8.7-10 .2 Not Available [facility] ([facility]) [address] [place], [address], 08/27/2023 13:14:51 08/26/19 24 08/27/2023 COMP. METAB OLIC PANEL (14) protein, total 7.3 g/dL 6.0-8. 5 Not Available [facility] ([facility]) [address] [place], [address], 08/27/2023 13:14:51 08/26/19 24 08/27/2023 COMP. METAB OLIC PANEL (14) albumin 4.4 g/dL 3.9-4. 9 Not Available [facility] ([facility]) [address] [facility], [place], [address], 08/27/2023 13:14:51 08/26/19 24 08/27/2023 COMP. METAB OLIC PANEL (14) globulin, total 2.9 g/dL 1.5-4. 5 Not Available [facility] ([facility]) [address] [facility], [place], [address], 08/27/2023 13:14:51 08/26/19 24 08/27/2023 COMP. METAB OLIC PANEL (14) A/G ratio 1.5 1.2-2. 2 Not Available [facility] ([facility]) [address] [facility], [place], [address], 08/27/2023 13:14:51 08/26/19 24 08/27/2023 COMP. METAB OLIC PANEL (14) bilirubin, total <0.2 mg/dL 0.0-1. 2 Not Available [facility] ([facility]) [address] [facility], [place], [address], 08/27/2023 13:14:51 08/26/19 24 08/27/2023 COMP. METAB OLIC PANEL (14) alkaline phosphatase 90 IU/L 44-121 Not Available [facility] ([facility]) [address] [facility], [place], [address], 08/27/2023 13:14:51 08/26/19 24 08/27/2023 COMP. METAB OLIC PANEL (14) AST (SGOT) 12 IU/L 0-40 Not Available [facility] ([facility]) [address] [facility], [place], [address], 08/27/2023 13:14:51 08/26/19 24 08/27/2023 COMP. METAB OLIC PANEL (14) ALT (SGPT) 12 IU/L 0-32 Not Available [facility] ([facility]) [address] [place], [address], 08/27/2023 13:14:51 08/26/19 24 08/27/2023 HEMOG LOBIN A1C hemoglobin A1C 6.5 % 4.8-5. 6 above high normal Predi abete s: 5.7 - 6.4 Diabe juan: >6.4 Glyce alisha contr ol for adult s with diabe juan: <7.0 Not Available [facility] ([facility]) [address] [place], [address], 08/27/2023 13:14:52 08/26/19 24 08/27/2023 TSH TSH 1.420 uIU/m L 0.450- 4.500 Not Available [facility] ([facility]) [address] [place], [address], 08/27/2023 13:14:52 08/26/19 24 08/27/2023 CBC WITH DIFFE RENTI AL/PL ATELE T WBC 6.8 x10e3 /uL 3.4-10 .8 Not Available [facility] ([facility]) [address] [place], [address], 08/27/2023 13:14:53 08/26/19 24 08/27/2023 CBC WITH DIFFE RENTI AL/PL ATELE T RBC 3.71 x10e6 /uL 3.77-5 .28 below low normal Not Available [facility] ([facility]) [address] [place], [address], 08/27/2023 13:14:53 08/26/19 24 08/27/2023 CBC WITH DIFFE RENTI AL/PL ATELE T hemoglobin 9.5 g/dL 11.1-1 5.9 below low normal Not Available [facility] ([facility]) [address] [place], [address], 08/27/2023 13:14:53 08/26/19 24 08/27/2023 CBC WITH DIFFE RENTI AL/PL ATELE T hematocrit 29.7 % 34.0-4 6.6 below low normal Not Available [facility] ([facility]) [address] [place], [address], 08/27/2023 13:14:53 08/26/19 24 08/27/2023 CBC WITH DIFFE RENTI AL/PL ATELE T MCV 80 fL 79-97 Not Available [facility] ([facility]) [address] [place], [address], 08/27/2023 13:14:53 08/26/19 24 08/27/2023 CBC WITH DIFFE RENTI AL/PL ATELE T MCH 25.6 pg 26.6-3 3.0 below low normal Not Available [facility] ([facility]) [address] [place], [address], 08/27/2023 13:14:53 08/26/19 24 08/27/2023 CBC WITH DIFFE RENTI AL/PL ATELE T MCHC 32.0 g/dL 31.5-3 5.7 Not Available [facility] ([facility]) [address] [place], [address], 08/27/2023 13:14:53 08/26/19 24 08/27/2023 CBC WITH DIFFE RENTI AL/PL ATELE T RDW 17.2 % 11.7-1 5.4 above high normal Not Available [facility] ([facility]) [address] [place], [address], 08/27/2023 13:14:53 08/26/19 24 08/27/2023 CBC WITH DIFFE RENTI AL/PL ATELE T platelets 319 x10e3 /uL 150-45 0 Not Available [facility] ([facility]) [address] [place], [address], 08/27/2023 13:14:53 08/26/19 24 08/27/2023 CBC WITH DIFFE RENTI AL/PL ATELE T neutrophils 55 % notest ab. Not Available [facility] ([facility]) [address], [place], [address], 08/27/2023 13:14:53 08/26/19 24 08/27/2023 CBC WITH DIFFE RENTI AL/PL ATELE T lymphs 37 % notest ab. Not Available [facility] ([facility]) [address] [facility], [place], [address], 08/27/2023 13:14:53 08/26/19 24 08/27/2023 CBC WITH DIFFE RENTI AL/PL ATELE T monocytes 7 % notest ab. Not Available [facility] ([facility]) [address] [facility], [place], [address], 08/27/2023 13:14:53 08/26/19 24 08/27/2023 CBC WITH DIFFE RENTI AL/PL ATELE T eos 1 % notest ab. Not Available [facility] ([facility]) [address] [facility], [place], [address], 08/27/2023 13:14:53 08/26/19 24 08/27/2023 CBC WITH DIFFE RENTI AL/PL ATELE T basos 0 % notest ab. Not Available [facility] ([facility]) [address] [facility], [place], [address], 08/27/2023 13:14:53 08/26/19 24 08/27/2023 CBC WITH DIFFE RENTI AL/PL ATELE T neutrophils (absolute) 3.7 x10e3 /uL 1.4-7. 0 Not Available [facility] ([facility]) [address] [facility], [place], [address], 08/27/2023 13:14:53 08/26/19 24 08/27/2023 CBC WITH DIFFE RENTI AL/PL ATELE T lymphs (absolute) 2.5 x10e3 /uL 0.7-3. 1 Not Available [facility] ([facility]) [address] [place], [address], 08/27/2023 13:14:53 08/26/19 24 08/27/2023 CBC WITH DIFFE RENTI AL/PL ATELE T monocytes(ab solute) 0.5 x10e3 /uL 0.1-0. 9 Not Available [facility] ([facility]) [address] [place], [address], 08/27/2023 13:14:53 08/26/19 24 08/27/2023 CBC WITH DIFFE RENTI AL/PL ATELE T eos (absolute) 0.1 x10e3 /uL 0.0-0. 4 Not Available [facility] ([facility]) [address] [place], [address], 08/27/2023 13:14:53 08/26/19 24 08/27/2023 CBC WITH DIFFE RENTI AL/PL ATELE T baso (absolute) 0.0 x10e3 /uL 0.0-0. 2 Not Available [facility] ([facility]) [address] [place], [address], 08/27/2023 13:14:53 08/26/19 24 08/27/2023 CBC WITH DIFFE RENTI AL/PL ATELE T immature granulocytes 0 % notest ab. Not Available [facility] ([facility]) [address] [place], [address], 08/27/2023 13:14:53 08/26/19 24 08/27/2023 CBC WITH DIFFE RENTI AL/PL ATELE T immature grans (abs) 0.0 x10e3 /uL 0.0-0. 1 Not Available [facility] ([facility]) [address] [place], [address], 08/27/2023 13:14:53 08/26/19 24 08/27/2023 TRIIO DOTHY SHAWN E (T3), FREE triiodothyro nine (T3), free 3.0 pg/mL 2.0-4. 4 Not Available [facility] ([facility]) [address] [facility], [place], [address], 08/27/2023 13:14:54 08/26/19 24 08/27/2023 VITAM IN D, 25-HY DROXY vitamin D, 25-hydroxy 20.6 NG/mL 30.0-1 00.0 below low normal Vitam in D defic iency has been defin ed by the Insti tute of Medic ine and an Endoc rine Socie ty pract ice guide line as a level of serum 25-OH vitam in D less than 20 ng/mL (1,2) . The Endoc rine Socie ty went on to furth er defin e vitam in D insuf ficie ncy as a level betwe en 21 and 29 ng/mL (2). 1. IOM (Inst itute of Medic ine). 2009. Dieta ry refer ence yuval es for calci um and D. Te mcmanus [place]: The [facility] Press . 2. Zehra bonner MF, Jessee ey [place], Jj off-F errar i BERGER, et al. Evalu ation , treat ment, and preve ntion of vitam in D defic iency : an Endoc rine Socie ty clini bishop pract ice guide line. JCEM. 2010; 96(7) :1911 -30. Not Available [facility] ([facility]) [address] [facility], [place], [address], 08/27/2023 13:14:54 08/26/19 24 08/26/2023 Hemog lobin A1c/H emogl obin. total in Blood hemoglobin A1C/hemoglob in.total in blood 6.5 % HGB A1C 6.5 % Not Available Not Available 06/06/2024 11:12:41 09/08/19 24 09/09/2023 IRON AND TIBC iron bind.cap.(TI BC) 348 ug/dL 250-45 0 Not Available [facility] ([facility]) [address] [facility], [place], [address], 09/09/2023 08:28:27 09/08/19 24 09/09/2023 IRON AND TIBC UIBC 292 ug/dL 131-42 5 Not Available [facility] ([facility]) [address] [facility], [place], [address], 09/09/2023 08:28:27 09/08/19 24 09/09/2023 IRON AND TIBC iron 56 ug/dL 27-159 Not Available [facility] ([facility]) [address], [place], [address], 09/09/2023 08:28:27 09/08/19 24 09/09/2023 IRON AND TIBC iron saturation 16 % 15-55 Not Available [facility] ([facility]) [address] [address] [facility], [place], [address], 09/09/2023 08:28:27 09/08/19 24 09/09/2023 VITAM IN B12 vitamin B12 733 pg/mL 232-12 45 Not Available [facility] ([facility]) [address] [address] [facility], [place], [address], 09/09/2023 08:28:28 09/08/19 24 09/09/2023 FOLAT E (FOLI C ACID) , SERUM folate (folic acid), serum 9.6 NG/mL >3.0 A serum folat e momo ntrat ion of less than 3.1 ng/mL is consi dered to repre sent clini bishop defic iency . Not Available [facility] ([facility]) [address] [address] [facility], [place], [address], 09/09/2023 08:28:29 09/08/19 24 09/09/2023 CHRISTINE TIN ferritin 14 NG/mL 15-150 below low normal Not Available [facility] ([facility]) [address] [address] [facility], [place], [address], 09/09/2023 08:28:31 09/08/19 24 09/08/2023 RETIC ULOCY TE COUNT reticulocyte count 1.5 % 0.6-2. 6 Not Available [facility] ([facility]) [address] [address] [facility], [place], [address], 09/09/2023 08:28:32 09/08/19 24 09/09/2023 VITAM IN D, 25-HY DROXY vitamin D, 25-hydroxy 36.1 NG/mL 30.0-1 00.0 Vitam in D defic iency has been defin ed by the Insti tute of Medic ine and an Endoc rine Socie ty pract ice guide line as a level of serum 25-OH vitam in D less than 20 ng/mL (1,2) . The Endoc rine Socie ty went on to furth er defin e vitam in D insuf ficie ncy as a level betwe en 21 and 29 ng/mL (2). 1. IOM (Inst itute of Medic ine). 2009. Dieta ry refer ence yuval es for calci um and D. Te mcmanus [place]: The [facility] . 2. Zehra bonner MF, Jessee ey [place], Jj off-F errar i BERGER, et al. Evalu ation , treat ment, and preve ntion of vitam in D defic iency : an Endoc rine Socie ty clini bishop pract ice guide line. JCEM. 2010; 96(7) :1911 -30. Not Available [facility] ([facility]) [address] [facility] [address] [facility], [place], [address], 09/09/2023 08:28:33 05/02/19 25 05/02/2024 HbA1c (hemo globi n A1c), blood A1C 5.7 normal Not Available [facility] ([facility]) [address] [facility] [place], [address], 05/02/2024 23:05:03 05/22/19 25 05/23/2024 URINE CULTU RE, ROUTI NE urine culture, routine FINAL REPORT Not Available [facility] ([facility]) [address] [facility] [address] [facility], [place], [address], 05/24/2024 03:08:17 05/22/19 25 05/23/2024 URINE CULTU RE, ROUTI NE result 1 COMMEN T Mixed uroge nital yfn 25,00 0-50, 000 colon y formi ng units per mL Not Available [facility] ([facility]) [address] [place], [address], 05/24/2024 03:08:17 05/22/19 25 05/23/2024 NUSWA B VAGIN ITIS PLUS (VG+) atopobium vaginae HIGH - 2 score abnormal Not Available [facility] ([facility]) [address] [address] [facility], [place], [address], 05/24/2024 05:09:24 05/22/19 25 05/23/2024 NUSWA B VAGIN ITIS PLUS (VG+) bvab 2 MODERA TE - 1 score Not Available [facility] ([facility]) [address] [place], [address], 05/24/2024 05:09:24 05/22/19 25 05/23/2024 NUSWA B VAGIN ITIS PLUS (VG+) megasphaera 1 LOW - 0 score Calcu late total score by addin g the 3 indiv idual bacte rial vagin osis (BV) marke r score s toget her. Total score is inter prete d as follo ws: Total score 0-1: Indic ates the absen ce of BV. Total score 2: Indet ermin ate for BV. Addit ional clini bishop data shoul d be evalu ated to estab orly a diagn osis. Total score 3-6: Indic ates the prese nce of BV. Not Available [facility] ([facility]) [address] [address] [facility], [place], [address], 05/24/2024 05:09:24 05/22/19 25 05/23/2024 NUA B VAGIN ITIS PLUS (VG+) nati albicans, TONNY NEGATI VE negati ve Not Available [facility] ([facility]) [address] [address] [facility], [place], [address], 05/24/2024 05:09:24 05/22/19 25 05/23/2024 NUA B VAGIN ITIS PLUS (VG+) nati glabrata, TONNY NEGATI VE negati ve Not Available [facility] ([facility]) [address] [address] [facility], [place], [address], 05/24/2024 05:09:24 05/22/19 25 05/24/2024 NUA B VAGIN ITIS PLUS (VG+) trich vag by TONNY NEGATI VE negati ve Not Available [facility] ([facility]) [address] [place], [address], 05/24/2024 05:09:24 05/22/19 25 05/24/2024 NUA B VAGIN ITIS PLUS (VG+) chlamydia trachomatis, TONNY NEGATI VE negati ve Not Available [facility] ([facility]) [address] [place], [address], 05/24/2024 05:09:24 05/22/19 25 05/24/2024 NUA B VAGIN ITIS PLUS (VG+) neisseria gonorrhoeae, TONNY NEGATI VE negati ve Not Available [facility] ([facility]) [address] [place], [address], 05/24/2024 05:09:24 05/22/19 25 05/23/2024 IGP, APTIM A HPV, RFX 16/18 ,45 HPV aptima NEGATI VE negati ve This nucle ic acid ampli ficat ion test detec ts fourt een high- risk HPV types (16,1 8,31, 33,35 ,39,4 5,51, 52,56 ,58,5 9,66, 68) witho ut diffe renti ation . Not Available [facility] ([facility]) [address] [place], [address], 05/25/2024 09:48:00 05/22/1905/25/2024 IGP, APTIM A HPV, RFX 16/18 ,45 diagnosis: PARUL Esparza NEGJONATHAN CELESTINE FOR INTRA EPITH ELIAL LESIO N OR MALIG CELESTINE . CELLU LAR DREW ES ASSOC IATED WITH JOEYA MMATI ON ARE PRESE NT. Not Available [facility] ([facility]) [address] [facility] [address], [place], [address], 05/25/2024 09:48:00 05/22/1905/25/2024 IGP, APTIM A HPV, RFX 16/18 ,45 specimen adequacy: PARUL Esparza Satis facto ry for evalu ation . Endoc ervic al and/o r squam ous metap lasti c cells (endo cervi bishop compo nent) are prese nt. Not Available [facility] ([facility]) [address] [address] [facility], [place], [address], 05/25/2024 09:48:00 05/22/1905/25/2024 IGP, APTIM A HPV, RFX 16/18 ,45 clinician provided ICD10: PARUL Esparza Z01.4 19 Not Available [facility] ([facility]) [address] [place], [address], 05/25/2024 09:48:00 05/22/1905/25/2024 IGP, APTIM A HPV, RFX 16/18 ,45 performed by: PARUL Zimmerman eh, Cytot pa yun t (ASCP ) Not Available [facility] ([facility]) [address] [place], [address], 05/25/2024 09:48:00 05/22/19 25 05/25/2024 IGP, APTIM A HPV, RFX 16/18 ,45 . . Not Available [facility] ([facility]) [address] [facility] [address] [facility], [place], [address], 05/25/2024 09:48:00 05/22/19 25 05/25/2024 IGP, APTIM A HPV, RFX 16/18 ,45 note: COMMEN T The Pap smear is a scree rigo test desig jairo to aid in the detec tion of neil ligna nt and malig nant condi tions of the uteri ne cervi x. It is not a diagn ostic proce dure and shoul d not be used as the sole means of detec ting cervi bishop cance r. Both false -posi tive and false -nega tive repor ts do occur . Not Available [facility] ([facility]) [address] [facility] [address] [facility], [place], [address], 05/25/2024 09:48:00 05/22/1905/25/2024 IGP, APTIM A HPV, RFX 16/18 ,45 test methodology: NOEMIEN T This liqui d based ThinP rep(R ) pap test was scree jairo with the use of an image guide d systthong m. Not Available [facility] ([facility]) [address] [address] [facility], [place], [address], 05/25/2024 09:48:00 05/22/1905/25/2024 IGP, APTIM A HPV, RFX 16/18 ,45 HPV genotype reflex COMMEN T Crite elen not met, HPV Genot ype not perfo rmed. Not Available [facility] ([facility]) [address] [address] [facility], [place], [address], 05/25/2024 09:48:00 05/24/19 25 05/24/2024 urina lysis , dipst ick Leukocytes Large Not Available In-Offi ce Order Internal Use Only DO Not Attach Compendium DO Not Attach Compendium, Do Not Delete/merge, 05/22/2024 09:30:43 05/24/19 25 05/24/2024 urina lysis , dipst ick Nitrite negati ve Not Available In-Office Order Internal Use Only DO Not Attach Compendium DO Not Attach Compendium, Do Not Delete/merge, 05/22/2024 09:30:43 05/24/19 25 05/24/2024 urina lysis , dipst ick Urobilinogen .2 Not Available In-Of fice Order Internal Use Only DO Not Attach Compendium DO Not Attach Compendium, Do Not Delete/merge, 05/22/2024 09:30:43 05/24/19 25 05/24/2024 urina lysis , dipst ick Protein 30 Not Available In-Office Order Internal Use Only DO Not Attach Compendium DO Not Attach Compendium, Do Not Delete/merge, 05/22/2024 09:30:43 05/24/19 25 05/24/2024 urina lysis , dipst ick pH 6.0 Not Available In-Office Order Internal Use Only DO Not Attach Compendium DO Not Attach Compendium, Do Not Delete/merge, 05/22/2024 09:30:43 05/24/19 25 05/24/2024 urina lysis , dipst ick Blood Non-He molyze d: Trace Not Available In-Office Order Internal Use Only DO Not Attach Compendium DO Not Attach Compendium, Do Not Delete/merge, 05/22/2024 09:30:43 05/24/19 25 05/24/2024 urina lysis , dipst ick Specific [place] 1.030 Not Available In-Off ice Order Internal Use Only DO Not Attach Compendium DO Not Attach Compendium, Do Not Delete/merge, 05/22/2024 09:30:43 05/24/19 25 05/24/2024 urina lysis , dipst ick Ketone Negati ve Not Available In-Office Order Internal Use Only DO Not Attach Compendium DO Not Attach Compendium, Do Not Delete/merge, 05/22/2024 09:30:43 05/24/19 25 05/24/2024 urina lysis , dipst ick Bilirubin Negati ve Not Available In-Office Order Internal Use Only DO Not Attach Compendium DO Not Attach Compendium, Do Not Delete/merge, [id number] 05/22/2024 09:30:43 05/24/19 25 05/24/2024 urina lysis , dipst ick Glucose Negati ve Not Available In-Office Order Internal Use Only DO Not Attach Compendium DO Not Attach Compendium, Do Not Delete/merge, [id number] 05/22/2024 09:30:43 11/18/19 23 11/17/2022 MAMMO , scree rigo, bilat eral No observ ation record ed. [email or web address] [facility] [address] [place], [address], 11/26/2022 13:49:00 11/23/19 24 11/23/2023 CT, abdom en + pelvi s, w/o contr ast No observ ation record ed. [email or web address] [facility] [address] [facility] [address], [place], [address], 11/23/2023 22:56:17 Result Notes None recorded. 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 Not Available [facility] 2 00:38:54 Chronic idiopath ic constipa tion 55738924 Active Not Available [facility] 2 00:38:55 Abnormal cervical Papanico laou smear 080803088 Active 2018 LGSIL Not Available [facility] 2 00:38:55 HPV - Human papillom avirus test positive Completed 201812/19/2019 Marvin contreras, PA - [facility] 0 16:07:12 Bacteria l vaginosi s 566334259 Completed 07/24/2019 BARBARA CASAS Attn: Accounting ,[address] [place], [address] , [facility] 2 10:26:59 Candidia sis 99434509 Completed 07/24/2019 BARBARA CASAS Attn: Accounting ,[address] [facility], [place], [address] , [place] - [facility] 0 08:40:14 Infectio n by Davin tomas [id number] Completed 07/24/2019 BARBARA CASAS Attn: Accounting ,[address] [facility], [place], [address] , [place] [facility] 0 08:40:21 Hyperlip idemia 29710621 Active 2019 Not Available [facility] 2 00:38:55 Vitamin D deficien cy 63610032 Active 2019 Not Available [facility] 2 00:38:55 Generali zed headache 737504690 Active 2019 x2-[address] normal in the ER 05/2019. Given Imitrex, no improvem ent. Possible tension headache s. Not Available [facility] 2 00:38:54 Human papillom a virus infectio n 687877640 Active 2019 Not Available [facility] 2 00:38:55 Bacteria l vaginosi s 724455914 Completed 202006/05/2021 BARBARA CASAS Attn: Accounting ,[address] [facility], [place], [address] , [place] - [facility] 2 10:26:59 Acute urinary tract infectio n 720636791 Completed 202006/05/2021 BARBARA CASAS Attn: Accounting ,[address] [facility], [place], [address] , [place] - [facility] 2 10:26:56 Obesity 131059058 Active Not Available [facility] 2 00:38:54 History of deep vein thrombos is 896274105 Active 2021 BARBARA CASAS Attn: Accounting ,[address] [facility], [place], [address] , [place] - [facility] 2 11:26:11 Type 2 diabetes mellitus 46565326 Active 2021 BARBARA CASAS Attn: Accounting ,[address] [place], [address] , [facility] 2 11:38:43 Chronic constipa tion 501297317 Active 2023 Jammie Wilder MD Attn: Accounting ,[address] [place], [address] , [facility] 4 16:33:50 Urethrit is 45659437 Completed 07/24/2019 BARBARA CASAS Attn: Accounting ,[address] [place], [place], [address] [place] [address] , [facility] 0 08:40:24 Urinary tract infectio us disease 76712836 Completed 07/24/2019 BARBARA CASAS Attn: Accounting ,[address] [place], [address] , [facility] 0 08:40:27 Vulvitis 79933931 Completed 07/24/2019 BARBARA CASAS Attn: Accounting ,[address] [place], [address] , [facility] 0 08:40:29 Herpes simplex 99517781 Active Not Available [facility] 2 00:38:55 Problem Notes None recorded. Procedures Surgical History Date Name Laterality Status Provider Name and Address Organization Details Recorded Time 3 Date of Last Mammogram completed Sarah Dickson MA PA - [facility] 05/22/2024 09:22:29 2 Date of Last Pap Smear completed Janett Veronica MA PA - [facility] 12/09/2021 11:12:58 9 Colposcopy completed Marvin Harvey [facility] 11/07/2018 14:24:02 9 Generic Procedure completed Marvin Harvey [facility] 11/07/2018 20:05:07 6 Tubal Ligation completed Marvin Harvey [facility] 01/03/2015 11:04:36 Imaging Results Imaging Date Name Status LastModified by Organiz ation Details LastModified Time 11/17/2022 MAMMO, screening, bilateral completed [email or web address] [facility] [address], [place], [address], 11/26/2022 13:49:00 11/23/2023 CT, abdomen + pelvis, w/o contrast completed [address] [facility] [address], [place], [address], 11/23/2023 22:56:17 Procedure Notes None recorded. Medical Equipment None Reported. Allergies Allergen ID Allergen Name Allergen Category Reaction Reaction Severity Criticality Documentation Date Start Date Code Code System Note Provider Name and Address Organization Details Recorded Time 875558 Macrobid medicatio n hives rash severe severe Not available 05/17/2017 23363 1 RxNorm SCOTT Snider, PA - [facility] 8 13:48:27 Medications Name Sig Start Date Stop Date Status Note LastModified by Organization Details LastModified Time oxybutynin chloride 5 mg tabs 05/17 completed Not Available Not Available Not Available metronidazo le vaginal 0.75 % gel 11/07 completed Not Available Not Available Not Available methylpredn isolone dose pack 4 mg tbpk 05/17 completed Not Available Not Available Not Available furosemide 20 mg tabs 05/17 completed Not Available Not Available Not Available triamcinolo ne acetonide 0.1 % crea 05/17 completed Not Available Not Available Not Available nystatin 398750 unit/gm crea 05/17 completed Not Available Not Available Not Available nitrofurant oin monohydrate /macrocryst als 100 mg caps 05/17 completed Not Available Not Available Not Available norethindro ne 0.35 mg tabs 07/23 completed Not Available Not Available Not Available polyethylen e glycol 3350 powd 05/17 completed Not Available Not Available Not Available fluconazole 200 mg tabs 11/07 completed Not Available Not Available Not Available metronidazo le 500 mg tabs 09/14 completed Not Available Not Available Not Available fluconazole 150 mg tabs 09/14 completed Not Available Not Available Not Available acyclovir 800 mg tabs 07/23 completed Not Available Not Available Not Available trimethopri m 100 mg tabs 09/14 completed Not Available Not Available Not Available phenazopyri dine hcl 200 mg tabs 09/14 completed Not Available Not Available Not Available ibuprofen 600 mg tabs 05/17 completed Not Available Not Available Not Available sulfamethox azole/trime thoprim ds 800-160 mg tabs 05/17 completed Not Available Not Available Not Available ciprofloxac in hcl 250 mg tabs 05/17 completed Not Available Not Available Not Available azithromyci n 250 mg tabs 11/07 completed Not Available Not Available Not Available penicillin v potassium 500 mg tabs 11/07 completed Not Available Not Available Not Available amitiza 24 mcg caps 05/17 completed Not Available Not Available Not Available multivitami n tablet TAKE 1 TABLET BY MOUTH ONCE DAILY 06/05 completed Not Available Not Available Not Available losartan 50 mg tablet active Not Available Not Available No t Available prednisone 10 mg tablet 12/09 completed Not Available Not Available Not Available clindamycin HCl 300 mg capsule 05/01 completed Not Available Not Available Not Available atorvastati n 10 mg tablet TAKE 1 TABLET BY MOUTH EVERY DAY DIRECTED active Not Available Not Available No t Available azithromyci n 250 mg tablet TAKE 2 TABLETS (500 MG) BY ORAL ROUTE ONCE DAILY FOR 1 DAY THEN 1 TABLET (250 MG) BY ORAL ROUTE ONCE DAILY FOR 4 DAYS 06/04 completed Not Available Not Available Not Available fluconazole 150 mg tablet TAKE 1 TABLET BY MOUTH EVERY DAY DIRECTED active Not Available Not Available No t Available fluconazole 200 mg tablet Take 1 tablet by oral route. 11/07 completed Not Available Not Available Not Available metronidazo le 0.75 % (37.5 mg/5 gram) vaginal gel Insert 1 applicato rful every day by vaginal route at bedtime for 5 days. 2024 active Not Available Not Available Not Avai lable ondansetron HCl 4 mg tablet TAKE 1 TABLET BY MOUTH 30 MINUTES PRIOR TO STARTING MIRALAX PREP AND MAY TAKE 1 TABLET EVERY 6 HOURS NEEDED FOR NAUSEA active Not Available Not Available No t Available prednisone 20 mg tablet TAKE 3 TABLETS BY MOUTH ONCE DAILY FOR 5 DAYS 06/04 completed Not Available Not Available Not Available Pyridium 200 mg tablet Take 1 tablet 3 times a day by oral route after meals for 2 days. 11/26 completed Not Available Not Available Not Available penicillin V potassium 500 mg tablet Take 1 tablet every 12 hours by oral route for 10 days. 07/23 completed Not Available Not Available Not Available metronidazo le 500 mg tablet TAKE 1 TABLET BY MOUTH TWICE DAILY FOR 7 DAYS DIRECTED 08/27 completed Not Available Not Available Not Available acetaminoph en 300 mg-codeine 30 mg tablet 05/01 completed Not Available Not Available Not Available ciprofloxac in 500 mg tablet TAKE 1 TABLET BY MOUTH EVERY 12 HOURS FOR 7 DAYS DIRECTED 11/26 completed Not Available Not Available Not Available sulfamethox azole 800 mg-trimetho prim 160 mg tablet TAKE 1 TABLET BY MOUTH EVERY 12 HOURS FOR 5 DAYS DIRECTED 10/27 completed Not Available Not Available Not Available tramadol 50 mg tablet 12/08 completed Not Available Not Available Not Available Condoms-Pre m Lubricated Take 1 device by miscell. route. 06/04 completed Not Available Not Available Not Available triamcinolo ne acetonide 0.1 % topical cream APPLY A THIN LAYER TO THE AFFECTED AREA(S) BY TOPICAL ROUTE 2 TIMES PER DAY 05/17 completed Not Available Not Available Not Available acyclovir 800 mg tablet Take 1 tablet every day by oral route. 09/14 completed Not Available Not Available Not Available Vitamin tablet Take 1 tablet every day by oral route as directed. 05/17 completed Not Available Not Available Not Available famotidine 20 mg tablet TAKE 1 TABLET BY MOUTH EVERY 12 HOURS FOR 5 DAYS 06/05 completed Not Available Not Available Not Available dicyclomine 20 mg tablet Take 1 tablet 4 times a day by oral route as needed. 05/01 completed Not Available Not Available Not Available cephalexin 500 mg capsule TAKE 1 CAPSULE BY MOUTH EVERY 8 HOURS FOR 7 DAYS 05/01 completed Not Available Not Available Not Available nystatin 100,000 unit/gram topical cream APPLY TO THE AFFECTED AREA(S) BY TOPICAL ROUTE 2 TIMES PER DAY 05/17 completed Not Available Not Available Not Available Banophen 25 mg capsule TAKE 1 CAPSULE BY MOUTH EVERY 6 HOURS NEEDED 06/05 completed Not Available Not Available Not Available ergocalcife rol (vitamin D2) 1,250 mcg (50,000 unit) capsule TAKE 1 CAPSULE BY MOUTH EVERY WEEK DIRECTED active Not Available Not Available No t Available polyethylen e glycol 3350 17 gram/dose oral powder MIX AND DRINK 1 CAPFUL IN 8 OZ OF LIQUID. USE DAILY NEEDED WHEN NO BOWEL MOVEMENT FOR 3 TO 4 DAYS. 08/27 completed Not Available Not Available Not Available norethindro ne (contracept celestine) 0.35 mg tablet Take 1 tablet every day by oral route as directed for 30 days. 12/09 completed Not Available Not Available Not Available Cipro 250 mg tablet Take 1 tablet every 12 hours by oral route for 5 days. 05/17 completed Not Available Not Available Not Available oxybutynin chloride 5 mg tablet Take 1 tablet 3 times a day by oral route. 05/17 completed Not Available Not Available Not Available metformin ER 500 mg tablet,exte nded release 24 hr TAKE 1 TABLET BY MOUTH TWICE DAILY WITH MEALS active Not Available Not Available No t Available naproxen 500 mg tablet TAKE 1 TABLET BY MOUTH TWICE DAILY active Not Available Not Available No t Available nitrofurant oin monohydrate /macrocryst als 100 mg capsule TAKE 1 CAPSULE BY MOUTH EVERY TWELVE HOURS active Not Available Not Available No t Available Amitiza 24 mcg capsule Take 1 capsule twice a day by oral route. 2014 active Not Available Not Available Not Avai lable UltiCare Pen Needle 31 gauge x 5/16 USE with victozia DAILY 05/18 completed Not Available Not Available Not Available Oysco 500/D 500 mg-5 mcg (200 unit) tablet TAKE 1 TABLET BY MOUTH TWICE DAILY 06/05 completed Not Available Not Available Not Available FeroSul 325 mg (65 mg iron) tablet TAKE 1 TABLET BY MOUTH TWICE DAILY 2024 active Not Available Not Available Not Avai lable Calcium with Vitamin D 600 mg-10 mcg (400 unit) tablet Take 1 tablet twice a day by oral route. 06/042 completed Not Available Not Available Not Available Uribel 118 mg-10 mg-40.8 mg-36 mg capsule Take 1 capsule 4 times a day by oral route for 10 days. 05/17 completed Not Available Not Available Not Available sodium,pota ssium,mag sulfates 17.5 gram-3.13 gram-1.6 gram oral soln FOLLOW THE INSTRUCTI ONS FROM YOUR PROVIDER active Not Available Not Available No t Available Metamucil Sugar-Free (aspartame) 3.4 gram/5.8 gram oral powder Take 3.4 g twice a day by oral route as directed for 30 days. 08/27 completed Not Available Not Available Not Available Xarelto 15 mg tablet Take 1 tablet twice a day by oral route with meals for 21 days. 12/09 completed Not Available Not Available Not Available Xarelto 20 mg tablet Take 1 tablet every day by oral route with meals for 30 days. 12/09 completed Not Available Not Available Not Available Myrbetriq 50 mg tablet,exte nded release Take 1 tablet every day by oral route. 05/17 completed Not Available Not Available Not Available calcium 600 mg (as carbonate)- vitamin D3 20 mcg (800 unit) tablet Take 1 tablet twice a day by oral route for 30 days. 09/14 completed Not Available Not Available Not Available TRUEplus Lancets 33 gauge USE TO CHECK BLOOD SUGAR LEVELS ONCE DAILY 06/19 completed Not Available Not Available Not Available Victoza 2-Denis 0.6 mg/0.1 mL (18 mg/3 mL) subcutaneou s pen injector INJECT 1.2MG SUBCUTANE OUSLY EVERY DAY DIRECTED 05/18 completed Not Available Not Available Not Available True Metrix Glucose Test Strip 06/19 completed Not Available Not Available Not Available True Metrix Glucose Meter TEST ONCE DAILY 06/19 completed Not Available Not Available Not Available Rybelsus 7 mg tablet Take by oral route for 30 days. 08/19 completed Not Available Not Available Not Available Rybelsus 3 mg tablet TAKE 1 TABLET BY MOUTH EVERY DAY IN THE MORNING 10/27 completed Not Available Not Available Not Available Mounjaro 7.5 mg/0.5 mL subcutaneou s pen injector ADMINISTE R 7.5 MG UNDER THE SKIN WEEKLY FOR 4 WEEKS 07/13 completed Not Available Not Available Not Available Mounjaro 5 mg/0.5 mL subcutaneou s pen injector ADMINISTE R 5 MG UNDER THE SKIN WEEKLY FOR 4 WEEKS 05/01 completed Not Available Not Available Not Available Mounjaro 10 mg/0.5 mL subcutaneou s pen injector ADMINISTE R 10 MG UNDER THE SKIN WEEKLY FOR 4 WEEKS 08/14 completed Not Available Not Available Not Available Mounjaro 12.5 mg/0.5 mL subcutaneou s pen injector Inject 12.5 mg every week by subcutane ous route as directed. 2024 active Not Available Not Available Not Avai lable Mounjaro 2.5 mg/0.5 mL subcutaneou s pen injector INJECT 2.5 MG UNDER THE SKIN WEEKLY FOR 4 WEEKS THEN 5 MG WEEKLY FOR 4 WEEKS 05/01 completed Not Available Not Available Not Available Vitals Date Recorded Body height Body mass index (BMI) Body weight Body temperature Heart rate Oxygen saturation Oxygen saturation in Arterial blood by Pulse oximetry Systolic blood pressure Diastolic blood pressure Provider Name and Address Organization Details Last Updated DateTime 3 165.1 cm 39.3 kg/m2 745537. 8 g 98.6 [degF] 82 /min 100 % 100 % 143 mm[Hg] 95 mm[Hg] Fabby Donahue CMA [place] [facility] 3 08:58:18 Date Recorded Body height Body mass index (BMI) Body weight Heart rate Oxygen saturation Oxygen saturation in Arterial blood by Pulse oximetry Systolic blood pressure Diastolic blood pressure Provider Name and Address Organization Details Last Updated DateTime 4 165.1 cm 39 kg/m2 225341. 05 g 103 /min 98 % 98 % 134 mm[Hg] 82 mm[Hg] Ana Oates [place] [facility] 4 11:00:23 Date Recorded Body height Body mass index (BMI) Body weight Heart rate Oxygen saturation Oxygen saturation in Arterial blood by Pulse oximetry Systolic blood pressure Diastolic blood pressure Provider Name and Address Organization Details Last Updated DateTime 4 165.1 cm 38.6 kg/m2 611154. 72 g 82 /min 97 % 97 % 138 mm[Hg] 72 mm[Hg] Jossie Doss MA [facility] 4 11:07:32 Date Recorded Body height Body mass index (BMI) Body weight Heart rate Oxygen saturation Oxygen saturation in Arterial blood by Pulse oximetry Systolic blood pressure Diastolic blood pressure Provider Name and Address Organization Details Last Updated DateTime 5 165.1 cm 38.7 kg/m2 432331. 3 g 92 /min 99 % 99 % 124 mm[Hg] 80 mm[Hg] Radha SCOTT Packer [facility] 5 10:22:05 Date Recorded Body height Body mass index (BMI) Body weight Heart rate Oxygen saturation Oxygen saturation in Arterial blood by Pulse oximetry Systolic blood pressure Diastolic blood pressure Provider Name and Address Organization Details Last Updated DateTime 5 165.1 cm 38.7 kg/m2 640162. 23 g 83 /min 99 % 99 % 122 mm[Hg] 84 mm[Hg] Sarah Dickson MA [facility] 5 09:25:07 Social History Question Answer Notes LastModified by Organizat ion Details LastModified Time Tobacco Smoking Status [facility] 05/16/2014 14:26:08 Do You Have An Advance Directive? No [email or web address] Information not available 08/06/2014 What Is Your Level Of Alcohol Consumption? Occasional [email or web address] Information not available 08/20/2023 Is Blood Transfusion Acceptable In An Emergency? Yes Information not available 05/17/2017 What Is Your Level Of Caffeine Consumption? Moderate Coffee [email or web address] Information not available 08/06/2014 How Much Tobacco Do You Chew? None [email or web address] Information not available 05/15/2015 In The 14 Days Before Symptom Onset, Have You Had Close Contact With A Laboratory-confir med COVID-19 While That Case Was Ill? No Information not available 06/05/2021 In The 14 Days Before Symptom Onset, Have You Had Close Contact With A Person Who Is Under Investigation For COVID-19 While That Person Was Ill? No Information not available 06/05/2021 Have You Been To An Area Known To Be High Risk For COVID-19? No Information not available 06/05/2021 Are You Currently Employed? No [email or web address] Information not available 08/06/2014 What Type Of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 UTI and BV after last visit, states the symptoms improved while on medication and for a few days afterwards but then they returned.- swab ordered again to see if BV was treated completed Bilateral localized swelling of hands [id number] 6103750 R22.33 Complains today that her forearms and fingers get swollen when she is walking/ex ercising but then resolves afterwards . Noticed it only recently as she has increased her exercise. Admits to staying hydrated during the day.- discussed common complaint of hand swelling with long walking due to distributi on of blood flow during exercise. Rec to try electrolyt es before and after walking. Move arms and hands when walking. Remove tight rings and watches before walking. [id number] BARBARA CASAS (Adult Med) [address] [place] [address] 10/27/2022 08:33:37 10/28/2022 12:38:22 Morbid obesity 737884975 E66.01 Advised decreased portion sizes, good food choices, limited eating out or fast food and eliminate soda and juice from diet. Advised physical activity daily and offered encouragem ent to continue with positive changes made so far. Urinary tr act infectious disease 88661254 N39.0 + klebsiella in August. Symptoms improved while on medication and then returned 1 week later. Concern for pyelonephr itis with R CVA tenderness but no fever, chills, fatigue, or N/V - Pyridium for symptomati c relief while waiting for antibiotic to work- cipro started after reviewing prior urine culture results and concern for pyelo- already has antifungal refill for prophylaxi s- will re-culture to r/o new infection, original should have been susceptibl e to bactrim.- strict instructio ns to return to clinic or ER if back pain does not improve or gets worse and is accompanie d with fevers Screening mammography 24 374946 Z12.31 Recently turned 42 years old, states family history of breast cancer. Will initiate yearly screenings . Depression screening 171 Z13.31 PHQ 2/9 was negative in office today (0 out of 27) [id number] BARBARA CASAS [facility] (Adult Med) [facility] [place] [address] 11/26/2022 08:42:16 11/27/2022 11:52:26 Type 2 diabetes mellitus 16256556 E11.9 HgbA1c: 6.2 today (11/26/2022 ), 6.4 (08/27/2022 ), 6.8 (06/22/2022) , 6.6 on 03/10/2022 - New diagnosisT aking Metformin 500 mg BID and rybelsus 7 mg dailyFoot exam: NL 06/22/2022h olesterol levels NL with new onset diabetes, will continue to monitor for now but will add statin on in the future- continue lifestyle changes plus metformin 500 mg BID.- c/w rybelsus for better control and to help with weight- diabetes informatio n provided to patient today along with BS log- f/u in 6 months Urinary tr act infectious disease 09740178 N39.0 UTI symptoms resolved since last visit and treatment, no urinary complaints today Morbid obesity 877680537 E66.01 Now on rybelsus, has lost 11 pounds since last visitAdvis ed decreased portion sizes, good food choices, limited eating out or fast food and eliminate soda and juice from diet. Advised physical activity daily and offered encouragem ent to continue with positive changes made so far. Depression screening 171 Z13.31 PHQ 2/9 was negative in office today (0 out of 27) Elevated blood-pressure reading without diagnosis of hypertension 493344694 R03.0 BP elevated today at 143/95, no prior history of elevated blood pressureJu st finished her work shift overnight so tired but denies symptoms of high blood pressureSt ates she checks BP at work regularly and always normal around 120/80- aware of elevated reading today- keep eye on BP, contact me if systolic > 140 and diastolic >90 [id number] MD Kathy Cobb (Adult Med) [address] [place] [address] 08/20/2023 10:43:57 08/20/2023 12:15:05 Type 2 diabetes mellitus 82716642 E11.9 Chronic constipation 236 441743 K59.09 Hyperlipidemia 76515230 E78.5 Long-term drug therapy 611615373 Z79.899 Vitamin D deficiency 347 19270 E55.9 Screening for malignant neoplasm of colon 993469803 Z12.11 Obesity 112029475 E66.9 [id number] Jammie Wilder MD [facility] [place] [address] [place] [address] 12/23/2023 10:31:48 12/23/2023 12:20:44 Hyperlipidemia 17507026 E78.5 Type 2 nydia betes mellitus 26599847 E11.9 Obesity 537326605 E66.9 Screening mammography 24 586005 Z12.31 [id number] Jammie Wilder MD [facility] [place] [address] [place] [address] 05/01/2024 10:05:03 05/01/2024 10:56:33 Body mass index 30+ - obesity 579192420 Z68.38 Obesity 370820210 E66.9 Hyperlipidemia 30198229 E78.5 Type 2 nydia betes mellitus 12045532 E11.9 Vitamin D deficiency 347 88761 E55.9 Anemia 418899444 D64.9 Gynecologi c examination 23929221 Z01.128 [id number] MD Kathy RAO (PROCESS IMPROVEMENT ENGINEER) [address] [place] [address] 05/22/2024 09:02:31 05/22/2024 09:02:32 Gynecologic examination 90015033 Z01.419 LGSIL 2 years ago; will repeat pap testing today + DNA testing as pt >30.Report s occasional dysuria and frequency, vaginal itching; nuswab and UA/culture to r/o infx. - mammograph y testing ordered by Dr. Wilder.- declined STI testing; recently completed and was cleared.- Pelvic exam showed yellow and milky white discharge in the vault.- reports frequent hx of BV; will treat with gel until nuswab/UA reflex returns. Vaginitis 19007906 N76.0 hx of recurrent BV; states her sx aren't too disruptive ; requesting gel to treat. Will provide.Nu swab ordered; follow up UA culture results in case this is a UTI. Health Concerns Section Related Observation LastModified by Organization Detai ls LastModified Time None Recorded Concern Status LastModified by Organization Details LastModified Time None Recorded Advance Directives Directive N: Payers Encounter Date Sequence Insurance Name Policy Number Policy Hinkle Covered Member ID Hinkle Member ID Guarantor Name 11/26/2022 1 [facility] [employer] (MEDICARE - MEDICAID REPLACEMENT HMO) [id number] Caroline Mix [id number] Caroline Dominguez 08/20/2023 1 [place] Caroline Mix [id number] Carolinegrazyna Mix 12/23/2023 1 [facility] (MEDICARE REPLACEMENT/A DVANTAGE - HMO) [id number] Caroline Dominguez [id number] Caroline Dominguez 05/01/2024 1 [facility] (MEDICARE REPLACEMENT/A DVANTAGE - HMO) [id number] Caroline Dominguez [id number] Caroline Dominguez 05/22/2024 1 [facility] (MEDICARE REPLACEMENT/A DVANTAGE - HMO) [id number] Caroline Dominguez [id number] Caroline Dominguez Notes Date Note Type Note Provider Name and Address Organization Details Recorded Time 11/26/2022 text/html Pt is here today for diabetes F/u. She's doing great overall since last visit, taking metformin once daily and now taking Rybelsus without issues. Has lost 11 pounds since last visit. Minimal SE with Metformin at current dose, concerned to increase though due to possible worsening of SE. She has been exercising daily, walks 2-3 miles a day. She cut out alcohol and eating much healthier. Denies fever, chills, nausea, vomiting, headaches, chest pain, SOB, abdominal pain, diarrhea, constipation, or dysuria. BARBARA CASAS Attn: [address]ing[address] [place], [address], [facility] 11/26/2022 13:51:34 08/20/2023 text/html 43-year-old overweight diabetic with dyslipidemia and a low vitamin D level comes in for follow-up of medical problems also has a history of chronic constipation currently taking metformin and Rybelsus Jammie Wilder MD Attn: [address] [place], [address], [facility] 09/05/2023 16:34:15 12/23/2023 text/html hyperlipidemia n eeds blood work she is taking the atorvastatin no problems obesity trouble losing weight diabetes needs blood work has stopped her metformin unclear why Jammie Wilder MD Attn: [address] [place], [address], [facility] 12/23/2023 21:32:17 05/01/2024 text/html diabetes no polyphagia polydipsia not taking the sugars like she should. Low vitamin-D level needs to be checked she does not have any bone pain or muscle pain at this time. Hyperlipidemia we need to check a lipid panel she is taking atorvastatin. Patient does have a history of tubal ligation. She seems to be tolerating her GLP 1 agent Jammie Wilder MD Attn: [address] [place], [address], [facility] 05/07/2024 21:05:30 05/22/2024 text/html Annual GYNReport ed bypatient.History:no gynecologic complaints Menstrual cycle:Normal menses Urinary symptoms:No hematuria; No incontinence Vulva:No genital lesion Vagina:Normal vaginal discharge Breast:No breast pain; No breast lump; No nipple discharge Current Contraception:Tubal ligation; Not sexually active for >3+ years Sexual complaints:No sexual complaints; No pain during intercourse; Normal libido Menopausal Symptoms:No menopausal symptoms; Normal vaginal lubrication Psychological symptoms:No depression; No anxiety; No PMDD Preventive measures:Encourage self breast examination; Encourage regular mammograms starting age 40 CATRINA SANTOS MD Attn: [address]ing[address] [place], [address], [facility] 06/14/2024 11:04:53 OBGyn Episode Ob Episode Information Episode Created Date Number of Fetuses Patient Bloodtype Patient rh Status Prepregnancy Weight lbs Domestic Partner Domestic Partner Phone Father Name Pond Scaler Status 05/15/19 16 1 CLOSED Fetus Data First Name Last Name Admitted to NICU Weight (g) Sex Living Outcome Pediatric Complications Fetus ID Race Codes Race Delivery Type 2267.96 M Full Term [id number] Standard Vaginal Delivery Dionte Calculation Initial Dionte Date Initial Exam Date Initial Exam Provider Initial Ultrasound Date Last Menstrual Period Date Ultra Sound Weeks Gestation 0 Eighteen To Twenty Week Dionte Update Ultra Sound Date Fundal Height At Umbil Quickening Date Ultra Sound Latest Weeks Gestation Final Dionte Confirmed By Final Dionte Confirmed Date Final Dionte Date Ultra Sound Latest Days Gestation 0 0 Menstrual History Last Menstrual Date Menses Monthly On Bcp Conception Prior Menses Frequency Hcg Plus Date Menarche Onset Age Delivery Information Delivery Date Delivery Type Labor Anesthesia Weeks Gestation Incision Type Labor Labor Length Hrs Delivered By Post Complications Tubal Sterilization Discharge Date Comments 4 None 40 Tom Discharge Information Feeding Method Contraceptive Method Maternal HG B and HCT Levels Ob Episode Information Episode Created Date Number of Fetuses Patient Bloodtype Patient rh Status Prepregnancy Weight lbs Domestic Partner Domestic Partner Phone Father Name Pond Scaler Status 05/15/19 16 1 CLOSED Fetus Data First Name Last Name Admitted to NICU Weight (g) Sex Living Outcome Pediatric Complications Fetus ID Race Codes Race Delivery Type 2267.96 F Full Term [id number] Standard Vaginal Delivery Dionte Calculation Initial Dionte Date Initial Exam Date Initial Exam Provider Initial Ultrasound Date Last Menstrual Period Date Ultra Sound Weeks Gestation 0 Eighteen To Twenty Week Dionte Update Ultra Sound Date Fundal Height At Umbil Quickening Date Ultra Sound Latest Weeks Gestation Final Dionte Confirmed By Final Dionte Confirmed Date Final Dionte Date Ultra Sound Latest Days Gestation 0 0 Menstrual History Last Menstrual Date Menses Monthly On Bcp Conception Prior Menses Frequency Hcg Plus Date Menarche Onset Age Delivery Information Delivery Date Delivery Type Labor Anesthesia Weeks Gestation Incision Type Labor Labor Length Hrs Delivered By Post Complications Tubal Sterilization Discharge Date Comments 3 Regional-Sp inal 40 Amonyae Discharge Information Feeding Method Contraceptive Method Maternal HG B and HCT Levels Ob Episode Information Episode Created Date Number of Fetuses Patient Bloodtype Patient rh Status Prepregnancy Weight lbs Domestic Partner Domestic Partner Phone Father Name Pond Scaler Status 05/15/19 16 1 CLOSED Fetus Data First Name Last Name Admitted to NICU Weight (g) Sex Living Outcome Pediatric Complications Fetus ID Race Codes Race Delivery Type 2267.96 M Full Term [id number] Standard Vaginal Delivery Dionte Calculation Initial Dionte Date Initial Exam Date Initial Exam Provider Initial Ultrasound Date Last Menstrual Period Date Ultra Sound Weeks Gestation 0 Eighteen To Twenty Week Dionte Update Ultra Sound Date Fundal Height At Umbil Quickening Date Ultra Sound Latest Weeks Gestation Final Dionte Confirmed By Final Dionte Confirmed Date Final Dionte Date Ultra Sound Latest Days Gestation 0 0 Menstrual History Last Menstrual Date Menses Monthly On Bcp Conception Prior Menses Frequency Hcg Plus Date Menarche Onset Age Delivery Information Delivery Date Delivery Type Labor Anesthesia Weeks Gestation Incision Type Labor Labor Length Hrs Delivered By Post Complications Tubal Sterilization Discharge Date Comments 6 None 40 [place] Discharge Information Feeding Method Contraceptive Method Maternal HG B and HCT Levels
[2024-08-23 08:17] LABS: Alanine Aminotransferase 14 U/L (6-35); Aspartate Amino Transferase 25 U/L (14-36)
== END 2024-08-23 07:37 | disposition home or self-care (01) ==
LOC: ANHLAB 07:40
PROVIDERS: PCP Internal Medicine; Visit Provider Podiatrist Foot & Ankle Surgery
DX: B35.1 Tinea unguium (principal)
CPT/HCPCS: 36415; 84450; 84460

== ENCOUNTER 2024-09-04 07:32 | Outpatient (CLI) | payer MEDICARE, SELFPAY ==
--- OUTSIDE RECORDS SUMMARY | 2024-09-04 07:39 | XMS_ITS | Clinical Summary ---
Author Organization [facility] Address [address] [place] [address] Care Team Providers Care Rocket Motor Mechanic Name Role Phone Aliza Houston MD Primary Care Provider [phone] Allergies Active Allergy Reactions Criticality Noted Date [...] s:Hyperlipidemia associated with type 2 diabetes mellitus ([facility] HHS/HCC) TAKE 1 TABLET(10 MG) BY MOUTH DAILY 90 tablet 06/06/2024 Active metFORMIN ER (GLUCOPHAGE-XR) 500 MG 24 hr tabletIndication s:Type 2 diabetes mellitus with hyperglycemia, without long-term current use of insulin ([facility] HHS/HCC) TAKE 1 TABLET(500 MG) BY MOUTH TWICE DAILY WITH MEALS 180 tablet 1 06/06/2024 Active losartan (COZAAR) 50 MG tabletIndication s:Hypertension associated with type 2 diabetes mellitus (CMS/HCC HHS/HCC) TAKE 1 TABLET(50 MG) BY MOUTH DAILY 90 tablet 06/06/2024 Active Encounters Date Type Department Care Team Description 06/12/2024 Telephone [facility] Multispecialty Care - [address] [place] [address] Aliza Houston MD Follow Up from Last 3 Months Social History Tobacco [...] HPV 2012 Mammogram Screening 2022 COVID-19 Vaccine ( season) 2023 02/05/2021, 02/05/2021, 01/15/2021, Additional history exists Hemoglobin A1C 02/26/2024 08/26/2023 PHQ-2 (Physician [place]) 04/19/2024 12/27/2023 Annual Physical 12/26/2024 12/27/2023 Diabetes: [...] Med Group Scanned SCANNING Final Resu lt [facility] ONBASE * HEMOGLOBIN, GLYCOSYLATED (08/26/2023) HGB A1C 6.5 % 08/26/2023 us Default History Genericprovider LABORATORY Final Result from Last 3 Months or Most Recently Relevant to Health Maintenance Care Teams Rocket Motor Mechanic Relationship Specialty Start Date End Date Aliza Houston MD [address] [address] PCP - General INTERNAL MEDICINE 12/07/23
--- OUTSIDE RECORDS SUMMARY | 2024-09-04 07:39 | XMS_ITS | Encounter Summary ---
Author Organization [facility] Address [facility] [place] [address] Care Team Providers Care Gerontology Aide Name Role Phone Aliza Houston MD Primary Care Provider [phone] Encounter Details Date Type Department Care Team (Latest Contact Info) Description 12/30/2023 Eleven [employer] Message Enc [facility] Medical [facility] Multispecialty Care - [place] [address] [place] [address] [address] [place] [address] [place] [address] [place] [address] [address] [place], [place] [id number] Blood pressure pills Social History Tobacco Use [...] documented as of this encounter Care Teams Gerontology Aide Relationship Specialty Start Date End Date Aliza Houston MD [facility] [address] PCP - General INTERNAL MEDICINE 12/07/23 documented as of this encounter
--- OUTSIDE RECORDS SUMMARY | 2024-09-04 07:39 | XMS_ITS | Data Portability ---
[facility] Organization [facility] Address [address] [place] [address] Care Team Providers Care Recreational Therapist Name Role Phone JAMMIE WILDER Primary Care Provider Assessment Encounter Date Assessment Date Assessment LastModified by Organization Details LastModified Time 08/20/2023 08/20/2023 Diabetic eye exa mMalvin Blood work. Women's health visit. To include Pap and mammogram follow-up 4 months continue current therapy [email or web address] Not available 09/05/2023 16:33:28 12/23/2023 12/23/2023 no contraindications to GLP 1 therapy we will try to get rex proved. She is seeing a new director airport and she will get her pelvic exams there we will schedule a mammogram her request I will see her back in about 3 or 4 months dyslipidemia diabetes obesity discussed in detail Not available 12/23/2023 21:31:06 05/01/2024 05/01/2024 CBC CMP lipid hemoglobin A1c urinary microalbumin iron ferritin TIBC we will set up with Podiatry for diabetic foot exam titrate her Rex set her up with [facility] gynecology see me in 4 months healthy lifestyle care instructions Not available 05/07/2024 21:04:29 08/31/2024 08/31/2024 Healthy lifestyl e care instructions mammogram she will get all her pending blood work done take her medicines as prescribed hopefully that we get her blood pressure down she will see me back in 3 months she can take iron [id number] so the strategy to get her blood pressure down his regular walking lose 5-10 lb watch caffeine no supplements and take her antihypertensive daily [email or web address] Not available 09/02/2024 12:25:51 Plan of Treatment Reminders Order Date Submit Date Provider Last Modified By Organization Details Last Modified Time Details Appointments ANY 15 2024 09:00A Cecilia Wilder MD Not available Not available Not available Lab culture , urine 2024 025 [place] [facility], [address], [address], [place], [address], 05/24/2024 03:08:18 urinaly sis, dipstic k 2024 025 [facility] In-Office Order, Internal Use Only DO Not Attach Compendium DO Not Attach Compendium, Do Not Delete/merge, [id number] 05/24/2024 16:49:28 cytolog y report, thin prep, smear or scrapin g, cervica l or vaginal 2024 025 [place] [facility], [address], [place], [address], 05/25/2024 09:48:00 vaginal pathoge ns panel, TONNY+pro be, vaginal fluid [address]24 [address] [facility], [address], [place], [address], 05/24/2024 05:09:24 HbA1c (hemogl obin A1c), blood 2024 [address] [facility], [address], [place], [address], 05/03/2024 08:25:20 albumin /creati nine, mass ratio, urine 2024 025 [place] [facility], [address], [place], [address], 05/02/2024 13:13:10 CBC w/ auto diff 2024 [address]25 [facility], [address], [address], [place], [address], 05/02/2024 11:24:01 CMP, serum or plasma 2024 025 [facility], [address], [place], [address], 08/15/2024 14:04:52 lipid panel, serum 2024 025 [place] [facility], [address], [place], [address], 05/04/2024 12:09:16 iron + total iron-bi nding capacit y (TIBC), serum [address]24 [address] [facility], [address], [address], [place], [address], 05/03/2024 02:57:08 ferriti n, serum or plasma 2024 [address] [facility], [address], [place], [address], 06/07/2024 16:44:43 vitamin D, 25-hydr oxy, total, serum 2024 025 [facility], [address], [address], [place], [address], 08/03/2024 15:13:05 CMP, serum or plasma 2023 024 [facility], [address], [address], [place], [address], 01/03/2024 15:19:46 [facility] w/ [facility] diff [facility] [address], [address], [place], [address], 01/03/2024 15:19:47 TSH, ultra-s ensitiv e, serum 2023 024 [facility], [address], [address], [place], [address], 01/03/2024 15:19:47 unliste d lab - T4, free 2023 [facility] [facility], [address], [place], [address], 01/03/2024 15:19:47 unliste d lab - T3 2023 024 [place] [facility], [address], [place], [address], 01/03/2024 15:19:47 HbA1c (hemogl obin A1c), blood 2023 024 [email or web address] [id number] [facility], [address], [address], [place], [address], 01/13/2024 16:52:55 lipid panel, serum 2023 024 [place] [facility], [address], [place], [address], 01/03/2024 15:19:47 TSH, ultra-s ensitiv e, serum [address] [facility], [address], [address], [place], [address], 08/27/2023 13:14:52 T3, free, serum or plasma 2023 024 [place] [facility], [address], [address], [place], [address], 08/27/2023 13:14:54 unliste d lab - T4, free 2023 024 [place] [facility], [address], [address], [place], [address], 08/27/2023 13:14:50 vitamin D, 25-hydr oxy, total, serum [address] [facility], [address], [address], [place], [address], 08/27/2023 13:14:54 HbA1c (hemogl obin A1c), blood 2023 [address] [facility], [address], [address], [place], [address], 08/27/2023 13:14:52 CBC w/ auto diff 2023 [address]24 [facility], [address], [address], [place], [address], 08/27/2023 13:14:53 lipid panel, serum 2023 024 [facility], [address], [address], [place], [address], 08/27/2023 13:14:50 CMP, serum or plasma 2023 024 [facility], [address], [address], [place], [address], 08/27/2023 13:14:51 Referral podiatr ist referra l 2024 025 [facility] Mario Linton Jr DPM, [address], [address], [place], [address], 07/20/2024 12:13:49 gynecol ogist referra l 2024 025 lan Chavez (Ob), [address] [place] [address], [id number], 05/19/2024 08:44:40 Procedures colonos copy screeni ng (PROC) 2023 024 [facility], [address], [address], [place], [address], 05/02/2024 13:02:43 Surgeries None recorde d. Imaging MAMMO, paula marino al [address] [facility], [address], [address], [place], [address], 08/31/2024 12:20:15 MAMMO, мария ann paula al 2023 024 [facility] (Imaging), [address], [place], [address], 02/21/2024 16:36:02 Medication Orders metform in ER 500 mg tablet, extende d release 24 hr 2024 025 [place] [address] [facility] #[id number], [address] [place], [place], [phone], 08/31/2024 17:11:45 atorvas tatin 10 mg tablet 2024 025 [place] [address] [facility], [address] [place], [place], [phone], 08/31/2024 17:11:45 metroni dazole 0.75 % (37.5 mg/5 gram) vaginal gel 2024 025 [email or web address] [facility] #25640, [address] [place], [place], [phone], 05/22/2024 10:06:39 Mounjar o 7.5 mg/0.5 mL subcuta neous pen injecto r 2024 025 [email or web address] [facility] #92591, [address], [place], [phone], 07/13/2024 09:26:38 Mounjar o 2.5 mg/0.5 mL subcuta neous pen injecto r 2023 025 [facility] #93658, [address], [place], [place], [phone], 05/01/2024 10:51:27 Mounjar o 5 mg/0.5 mL subcuta neous pen injecto r 2023 024 [email or web address] [facility], [address], [place], [place], [phone], 05/01/2024 10:50:31 Patient TargetsNo targets recorded. Patient Instructions Encounter Date Encounter Id Patient Instructions Last Modified By Organization Details Last Modified Time 08/20/2023 [id number] diabetic eye exam* [email or web address] Not available 11/18/2023 11:29:29 05/01/2024 [id number] A healthy lifestyle: care instructions [email or web address] Not available 05/01/2024 10:25:54 05/22/2024 [id number] Attending Physician Attestation S: 43 yo F [...] my brief note above. Catrina Santos MD [email or web address] Not available 05/22/2024 10:03:47 08/31/2024 [id number] A healthy lifestyle: care instructions [email or web address] Not available 08/31/2024 12:20:15 Reason for Referral Aesthetician Referral for Type 2 diabetes mellitus Referring Physician: Jammie Wilder, Internal Medicine, Encounter Date: 05/01/2024 Heel Caser Referral for Gy necologic examination Referring Physician: Jammie Wilder, Internal Medicine, Encounter Date: 05/01/2024 Results Created Date Observation Date Name Description Value Unit Range Abnormal Flag Note LastModifiedBy Organization Detail LastModifiedTime 08/26/19 24 08/27/2023 LIPID PANEL cholesterol, total 209 mg/dL 100-19 9 above high normal Not Available [facility] ([facility]) [address] [place], [address], 08/27/2023 13:14:50 08/26/19 24 08/27/2023 LIPID PANEL triglyceride s 69 mg/dL 0-149 Not Available [facility] ([facility]) [address] [place], [address], 08/27/2023 13:14:50 08/26/19 24 08/27/2023 LIPID PANEL HDL cholesterol 78 mg/dL >39 Not Available [facility] ([facility]) [address] [place], [address], 08/27/2023 13:14:50 08/26/19 24 08/27/2023 LIPID PANEL VLDL cholesterol bishop 12 mg/dL 5-40 Not Available [facility] ([facility]) [address] [place], [address], 08/27/2023 13:14:50 08/26/19 24 08/27/2023 LIPID PANEL LDL chol calc ([facility]) 119 mg/dL 0-99 above high normal Not Available [facility] ([facility]) [address] [place], [address], 08/27/2023 13:14:50 08/26/19 24 08/27/2023 T4, FREE T4,free(dire ct) 1.29 NG/dL 0.82-1 .77 Not Available [facility] ([facility]) [address] [place], [address], 08/27/2023 13:14:50 08/26/19 24 08/27/2023 COMP. METAB OLIC PANEL (14) glucose 89 mg/dL 70-99 Not Available [facility] ([facility]) [address] [place], [address], 08/27/2023 13:14:51 08/26/19 24 08/27/2023 COMP. METAB OLIC PANEL (14) BUN 10 mg/dL 6-24 Not Available [facility] ([facility]) [address] [place], [address], 08/27/2023 13:14:51 08/26/19 24 08/27/2023 COMP. METAB OLIC PANEL (14) creatinine 0.72 mg/dL 0.57-1 .00 Not Available [facility] ([facility]) [address] [place], [address], 08/27/2023 13:14:51 08/26/19 24 08/27/2023 COMP. METAB OLIC PANEL (14) eGFR 108 mL/mi n/1.7 3 >59 Not Available [facility] ([facility]) [address] [place], [address], 08/27/2023 13:14:51 08/26/19 24 08/27/2023 COMP. METAB OLIC PANEL (14) BUN/creatini ne ratio 14 9-23 Not Available [facility] ([facility]) [address] [place], [address], 08/27/2023 13:14:51 08/26/19 24 08/27/2023 COMP. METAB OLIC PANEL (14) sodium 138 mmol/ L 134-14 4 Not Available [facility] ([facility]) [address] [place], [address], 08/27/2023 13:14:51 08/26/19 24 08/27/2023 COMP. METAB OLIC PANEL (14) potassium 4.3 mmol/ L 3.5-5. 2 Not Available [facility] ([facility]) [address] [facility], [place], [address], 08/27/2023 13:14:51 08/26/19 24 08/27/2023 COMP. METAB OLIC PANEL (14) chloride 102 mmol/ L 96-106 Not Available [facility] ([facility]) [address] [facility], [place], [address], 08/27/2023 13:14:51 08/26/19 24 08/27/2023 COMP. METAB OLIC PANEL (14) carbon dioxide, total 21 mmol/ L 20-29 Not Available [facility] ([facility]) [address] [facility], [place], [address], 08/27/2023 13:14:51 08/26/19 24 08/27/2023 COMP. METAB OLIC PANEL (14) calcium 9.6 mg/dL 8.7-10 .2 Not Available [facility] ([facility]) [address] [facility], [place], [address], 08/27/2023 13:14:51 08/26/19 24 08/27/2023 COMP. METAB OLIC PANEL (14) protein, total 7.3 g/dL 6.0-8. 5 Not Available [facility] ([facility]) [address] [facility], [place], [address], 08/27/2023 13:14:51 08/26/19 24 08/27/2023 COMP. METAB OLIC PANEL (14) albumin 4.4 g/dL 3.9-4. 9 Not Available [facility] ([facility]) [address] [place], [address], 08/27/2023 13:14:51 08/26/19 24 08/27/2023 COMP. METAB OLIC PANEL (14) globulin, total 2.9 g/dL 1.5-4. 5 Not Available [facility] ([facility]) [address] [facility] [place], [address], 08/27/2023 13:14:51 08/26/19 24 08/27/2023 COMP. METAB OLIC PANEL (14) A/G ratio 1.5 1.2-2. 2 Not Available [facility] ([facility]) [address] [facility] [place], [address], 08/27/2023 13:14:51 08/26/19 24 08/27/2023 COMP. METAB OLIC PANEL (14) bilirubin, total <0.2 mg/dL 0.0-1. 2 Not Available [facility] ([facility]) [address] [facility] [place], [address], 08/27/2023 13:14:51 08/26/19 24 08/27/2023 COMP. METAB OLIC PANEL (14) alkaline phosphatase 90 IU/L 44-121 Not Available [facility] ([facility]) [address] [facility], [place], [address], 08/27/2023 13:14:51 08/26/19 24 08/27/2023 COMP. METAB OLIC PANEL (14) AST (SGOT) 12 IU/L 0-40 Not Available [facility] ([facility]) [address] [place], [address], 08/27/2023 13:14:51 08/26/19 24 08/27/2023 COMP. METAB OLIC PANEL (14) ALT (SGPT) 12 IU/L 0-32 Not Available [facility] ([facility]) [address] [place], [address], 08/27/2023 13:14:51 08/26/19 24 08/27/2023 HEMOG LOBIN A1C hemoglobin A1C 6.5 % 4.8-5. 6 above high normal Predi abete s: 5.7 - 6.4 Diabe juan: >6.4 Glyce deepak contr ol for adult s with diabe juan: <7.0 Not Available [facility] ([facility]) [address] [place], [address], 08/27/2023 13:14:52 08/26/19 24 08/27/2023 TSH TSH 1.420 uIU/m L 0.450- 4.500 Not Available [facility] ([facility]) [address] [place], [address], 08/27/2023 13:14:52 08/26/19 24 08/27/2023 CBC WITH DIFFE RENTI AL/PL ATELE T WBC 6.8 x10e3 /uL 3.4-10 .8 Not Available [facility] ([facility]) [address] [facility], [place], [address], 08/27/2023 13:14:53 08/26/19 24 08/27/2023 CBC WITH DIFFE RENTI AL/PL ATELE T RBC 3.71 x10e6 /uL 3.77-5 .28 below low normal Not Available [facility] ([facility]) [address] [place], [address], 08/27/2023 13:14:53 08/26/19 24 08/27/2023 CBC WITH DIFFE RENTI AL/PL ATELE T hemoglobin 9.5 g/dL 11.1-1 5.9 below low normal Not Available [facility] ([facility]) [address] [place], [address], 08/27/2023 13:14:53 08/26/19 24 08/27/2023 CBC WITH DIFFE RENTI AL/PL ATELE T hematocrit 29.7 % 34.0-4 6.6 below low normal Not Available [facility] ([facility]) [address] [place], [address], 08/27/2023 13:14:53 08/26/19 24 08/27/2023 CBC WITH DIFFE RENTI AL/PL ATELE T MCV 80 fL 79-97 Not Available [facility] ([facility]) [address] [place], [address], 08/27/2023 13:14:53 08/26/19 24 08/27/2023 CBC WITH DIFFE RENTI AL/PL ATELE T MCH 25.6 pg 26.6-3 3.0 below low normal Not Available [facility] ([facility]) [address] [place], [address], 08/27/2023 13:14:53 08/26/19 24 08/27/2023 CBC WITH DIFFE RENTI AL/PL ATELE T MCHC 32.0 g/dL 31.5-3 5.7 Not Available [facility] ([facility]) [address] [place], [address], 08/27/2023 13:14:53 08/26/19 24 08/27/2023 CBC WITH DIFFE RENTI AL/PL ATELE T RDW 17.2 % 11.7-1 5.4 above high normal Not Available [facility] ([facility]) [address] [place], [address], 08/27/2023 13:14:53 08/26/19 24 08/27/2023 CBC WITH DIFFE RENTI AL/PL ATELE T platelets 319 x10e3 /uL 150-45 0 Not Available [facility] ([facility]) [address] [place], [address], 08/27/2023 13:14:53 08/26/19 24 08/27/2023 CBC WITH DIFFE RENTI AL/PL ATELE T neutrophils 55 % notest ab. Not Available [facility] ([facility]) [address] [place], [address], 08/27/2023 13:14:53 08/26/19 24 08/27/2023 CBC WITH DIFFE RENTI AL/PL ATELE T lymphs 37 % notest ab. Not Available [facility] ([facility]) [address] [facility], [place], [address], 08/27/2023 13:14:53 08/26/19 24 08/27/2023 CBC WITH DIFFE RENTI AL/PL ATELE T monocytes 7 % notest ab. Not Available [facility] ([facility]) [address] [facility], [place], [address], 08/27/2023 13:14:53 08/26/19 24 08/27/2023 CBC WITH DIFFE RENTI AL/PL ATELE T eos 1 % notest ab. Not Available [facility] ([facility]) [address] [facility], [place], [address], 08/27/2023 13:14:53 08/26/19 24 08/27/2023 CBC WITH DIFFE RENTI AL/PL ATELE T basos 0 % notest ab. Not Available [facility] ([facility]) [address] [facility], [place], [address], 08/27/2023 13:14:53 08/26/19 24 08/27/2023 CBC WITH DIFFE RENTI AL/PL ATELE T neutrophils (absolute) 3.7 x10e3 /uL 1.4-7. 0 Not Available [facility] ([facility]) [address] [place], [address], 08/27/2023 13:14:53 08/26/19 24 08/27/2023 CBC WITH DIFFE RENTI AL/PL ATELE T lymphs (absolute) 2.5 x10e3 /uL 0.7-3. 1 Not Available [facility] ([facility]) [address] [place], [address], 08/27/2023 13:14:53 08/26/19 24 08/27/2023 CBC WITH DIFFE RENTI AL/PL ATELE T monocytes(ab solute) 0.5 x10e3 /uL 0.1-0. 9 Not Available [facility] ([facility]) [address] [place], [address], 08/27/2023 13:14:53 08/26/19 24 08/27/2023 CBC WITH DIFFE RENTI AL/PL ATELE T eos (absolute) 0.1 x10e3 /uL 0.0-0. 4 Not Available [facility] ([facility]) [address] [facility], [place], [address], 08/27/2023 13:14:53 08/26/19 24 08/27/2023 CBC WITH DIFFE RENTI AL/PL ATELE T baso (absolute) 0.0 x10e3 /uL 0.0-0. 2 Not Available [facility] ([facility]) [address] [facility], [place], [address], 08/27/2023 13:14:53 08/26/19 24 08/27/2023 CBC WITH DIFFE RENTI AL/PL ATELE T immature granulocytes 0 % notest ab. Not Available [facility] ([facility]) [address] [facility], [place], [address], 08/27/2023 13:14:53 08/26/19 24 08/27/2023 CBC WITH DIFFE RENTI AL/PL ATELE T immature grans (abs) 0.0 x10e3 /uL 0.0-0. 1 Not Available [facility] ([facility]) [address] [place], [address], 08/27/2023 13:14:53 08/26/19 24 08/27/2023 TRIIO DOTHY SHAWN E (T3), FREE triiodothyro nine (T3), free 3.0 pg/mL 2.0-4. 4 Not Available [facility] ([facility]) [address] [place], [address], 08/27/2023 13:14:54 08/26/19 24 08/27/2023 VITAM IN [...] 1. IOM (Inst itute of Medic ine). 2010. Shamir ry refer ence yuval es for calci um and D. Te mcmanus [place]: The [facility] . 2. Zehra bonner MF, Jessee franco [place], Jj off-F errar i BERGER, et al. Evalu ation , treat ment, and preve ntion of vitam in D defic iency : an Endoc rine Socie ty clini bishop pract ice guide line. JCEM. 2010; 96(7) :1911 -30. Not Available [facility] ([facility]) [address] [place], [address], 08/27/2023 13:14:54 08/26/19 24 08/26/2023 Hemog lobin A1c/H emogl obin. total in Blood hemoglobin A1C/hemoglob in.total in blood 6.5 % HGB A1C 6.5 % Not Available Not Available 06/06/2024 11:12:41 09/08/19 24 09/09/2023 IRON AND TIBC iron bind.cap.(TI BC) 348 ug/dL 250-45 0 Not Available [facility] ([facility]) [address] [place], [address], 09/09/2023 08:28:27 09/08/19 24 09/09/2023 IRON AND TIBC UIBC 292 ug/dL 131-42 5 Not Available [facility] ([facility]) [address] [place], [address], 09/09/2023 08:28:27 09/08/19 24 09/09/2023 IRON AND TIBC iron 56 ug/dL 27-159 Not Available [facility] ([facility]) [address] [facility] [place], [address], 09/09/2023 08:28:27 09/08/19 24 09/09/2023 IRON AND TIBC iron saturation 16 % 15-55 Not Available [facility] ([facility]) [address] [facility] [place], [address], 09/09/2023 08:28:27 09/08/19 24 09/09/2023 VITAM IN B12 vitamin B12 733 pg/mL 232-12 45 Not Available [facility] ([facility]) [address] [facility] [place], [address], 09/09/2023 08:28:28 09/08/19 24 09/09/2023 FOLAT E (FOLI C ACID) , SERUM folate (folic acid), serum 9.6 NG/mL >3.0 A serum folat e momo ntrat ion of less than 3.1 ng/mL is consi dered to repre sent clini bishop defic iency . Not Available [facility] ([facility]) [address] [facility] [place], [address], 09/09/2023 08:28:29 09/08/19 24 09/09/2023 CHRISTINE TIN ferritin 14 NG/mL 15-150 below low normal Not Available [facility] ([facility]) [address] [facility] [place], [address], 09/09/2023 08:28:31 09/08/19 24 09/08/2023 RETIC ULOCY TE COUNT reticulocyte count 1.5 % 0.6-2. 6 Not Available [facility] ([facility]) [address] [place], [address], 09/09/2023 08:28:32 09/08/19 24 09/09/2023 VITAM IN [...] 1. IOM (Inst itute of Medic ine). 2010. Dieta ry refer ence yuval es for calci um and D. Te mcmanus [place]: The [facility] Press . 2. Zehra bonner MF, Jessee franco [place], Jj off-F errar i BERGER, et al. Evalu ation , treat ment, and preve ntion of vitam in D defic iency : an Endoc rine Socie ty clini bishop pract ice guide line. JCEM. 2010; 96(7) :1911 -30. Not Available [facility] ([facility]) [address] [place], [address], 09/09/2023 08:28:33 05/02/19 25 05/02/2024 HbA1c (hemo globi n A1c), blood A1C 5.7 normal Not Available [facility] ([facility]) [address] [place], [address], 05/02/2024 23:05:03 05/22/19 25 05/23/2024 URINE CULTU RELIVE NE urine culture, routine FINAL REPORT Not Available [facility] ([facility]) [address] [place], [address], 05/24/2024 03:08:17 05/22/19 25 05/23/2024 URINE CULTU RE, LIVE NE result 1 COMMEN T Mixed uroge nital yfn 25,00 0-50, 000 colon y formi ng units per mL Not Available [facility] ([facility]) [address] [facility], [place], [address], 05/24/2024 03:08:17 05/22/19 25 05/23/2024 NUSWA B VAGIN ITIS PLUS (VG+) atopobium vaginae HIGH - 2 score abnormal Not Available [facility] ([facility]) [address] [facility], [place], [address], 05/24/2024 05:09:24 05/22/19 25 05/23/2024 NUSWA B VAGIN ITIS PLUS (VG+) bvab 2 MODERA TE - 1 score Not Available [facility] ([facility]) [address] [facility], [place], [address], 05/24/2024 05:09:24 05/22/19 25 05/23/2024 NUSWA B VAGIN ITIS PLUS (VG+) megasphaera 1 LOW - 0 score Calcu late total score by emmanuel ruano the 3 indiv idual bacte rial vagin [...] prese nce of BV. Not Available [facility] ([facility]) [address] [facility], [place], [address], 05/24/2024 05:09:24 05/22/19 25 05/23/2024 NUSWA B VAGIN ITIS PLUS (VG+) nati albicans, TONNY NEGATI VE negati ve Not Available [facility] ([facility]) [address] [facility], [place], [address], 05/24/2024 05:09:24 05/22/19 25 05/23/2024 NUA B VAGIN ITIS PLUS (VG+) nati glabrata, TONNY NEGATI VE negati ve Not Available [facility] ([facility]) [address] [facility], [place], [address], 05/24/2024 05:09:24 05/22/19 25 05/24/2024 NUA B VAGIN ITIS PLUS (VG+) trich vag by TONNY NEGATI VE negati ve Not Available [facility] ([facility]) [address] [facility], [place], [address], 05/24/2024 05:09:24 05/22/19 25 05/24/2024 NUA B VAGIN ITIS PLUS (VG+) chlamydia trachomatis, TONNY NEGATI VE negati ve Not Available [facility] ([facility]) [address] [place], [address], 05/24/2024 05:09:24 05/22/19 25 05/24/2024 NUA B VAGIN ITIS PLUS (VG+) neisseria gonorrhoeae, TONNY NEGATI VE negati ve Not Available [facility] ([facility]) [address] [facility], [place], [address], 05/24/2024 05:09:24 05/22/19 25 05/23/2024 IGP, APTIM A HPV, RFX 16/18 ,45 HPV aptima NEGATI VE negati ve This nucle ic acid ampli ficat ion test detec ts fourt een high- risk HPV types (16,1 8,31, 33,35 ,39,4 5,51, 52,56 ,58,5 9,66, 68) witho kady cheng ataugust . Not Available [facility] ([facility]) [address] [place], [address], 05/25/2024 09:48:00 05/22/19 25 05/25/2024 IGP, APTIM A HPV, RFX 16/18 ,45 diagnosis: COMMEN T NEGAT CELESTINE FOR INTRA EPITH ELIAL LESIO N OR [place] . CELLU LAR DREW ES ASSOC IATED WITH JOEYA MMATI ON ARE PRESE NT. Not Available [facility] ([facility]) [address] [facility], [place], [address], 05/25/2024 09:48:00 [id number]|2024-09-04 07:39:00|2024-09-04 07:39:00|XMS_ITS|BKG DAEMON|External Medical Summaries|[id number]|" Clinical Summary Created on: September 04, 2024 Caroline Mix : 1980 Sex: Female Author Organization [facility] Care Team Providers Care Recreational Therapist Name Role Phone Unavailable Primary Care Provider [...] Influenza Immunization (#1) 2023 SARS-COV-2 Immunization ( - season) 2023 Respiratory Syncytial Virus (RSV) Immunization [...] on patient's age to complete this topic "
--- OUTSIDE RECORDS SUMMARY | 2024-09-04 07:39 | XMS_ITS | Clinical Summary ---
Author Organization [facility] Address [address] [place] [address] Care Team Providers Care Degreasing Wheel Operator Name Role Phone Unavailable Primary Care Provider Unavailabl e Source Comments [facility]non-owned Affiliates and Associated Physician Practices is amultiple site organization consisting of ambulatory clinics and hospital sitesin [place], [place], [place] and [place]. This disclosure is being madepursuant to the Care Everywhere program and may not contain all information available regarding this patient. Last updated 18.[facility] 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
--- OUTSIDE RECORDS SUMMARY | 2024-09-04 07:39 | XMS_ITS | CONTINUITY OF CARE DOCUMENT ---
Author Name emiliaemilia Address Unknown Organization [facility] Address [address] [place] [address] Phone [phone] Care Team Providers Care Geology Teacher Name Role Phone Rocky PETERSON, Wes Unavailable [phone] MIRA PETERSON, DANGELO Unavailable Unav iram DEVINE MD, [facility] Unavailable [phone] INSURANCE PROVIDERS Payer name Policy type / Coverage type [place] [employer] party [employer]ILY [employer] Medicaid 0 [id number] [place] [employer] Medicare [id number]
[2024-09-04 09:20] LABS: Alanine Aminotransferase 16 U/L (6-35); Albumin Level 4.2 g/dL (3.5-5.1); Alkaline Phosphatase 78 U/L (38-126); Anion Gap 9 mmol/L (4-12); Aspartate Amino Transferase 32 U/L (14-36); Bilirubin,Total 0.2 mg/dL (0.2-1.3); Blood Urea Nitrogen 8 mg/dL (7-17); Calcium 8.8 mg/dL (8.4-10.2); Carbon Dioxide 25 mmol/L (22-30); Chloride 103 mmol/L (98-107); Estimated Glomerular Filt Rate > 60; Glucose 95 mg/dL (65-110); Potassium 3.5 mmol/L (3.4-5.0); Sodium 137 mmol/L (137-145)
[2024-09-04 09:26] LABS: Vitamin D 25 Hydroxy 23.2 ng/mL
== END 2024-09-04 07:33 | disposition home or self-care (01) ==
LOC: ANHLAB 07:36
PROVIDERS: PCP Internal Medicine; Visit Provider Internal Medicine
DX: E78.5 Hyperlipidemia, unspecified (principal); E55.9 Vitamin D deficiency, unspecified
CPT/HCPCS: 36415; 80053; 82306

== ENCOUNTER 2024-09-14 15:02 | Outpatient (CLI) | payer MEDICARE, SELFPAY ==
--- NOTE | ~2024-09-14 | MM_ITS ---
EXAMINATION: MM screening camille BI w mo HISTORY: Screening TECHNIQUE: Craniocaudal and mediolateral oblique 3-D tomosynthesis images were obtained and synthetic 2-D images were generated. CAD analysis was submitted and interpreted. COMPARISON: No prior mammogram is available for comparison at this institution. BREAST PARENCHYMAL COMPOSITION: Not dense: There are scattered areas of fibroglandular density. FINDINGS: There is no evidence of suspicious mass, calcification, or architectural distortion to sugg est malignancy in either breast. There has been no suspicious interval change. IMPRESSION: 1. No mammographic evidence of malignancy. 2. Recommend routine screening mammography in one year. BI-RADS Category 1: Negative Reviewed, dictated and finalized at location A.
--- OUTSIDE RECORDS SUMMARY | 2024-09-14 15:06 | XMS_ITS | Clinical Summary ---
Author Organization [facility] Care Team Providers Care French Lecturer Name Role Phone Unavailable Primary Care Provider [...]
--- OUTSIDE RECORDS SUMMARY | 2024-09-14 15:06 | XMS_ITS | Clinical Summary ---
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 This disclosure is being madepursuant to the Care Everywhere program and may not contain all information available regarding this patient. 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
--- OUTSIDE RECORDS SUMMARY | 2024-09-14 15:06 | XMS_ITS | Data Portability ---
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 Women's health visit. To include Pap and mammogram follow-up 4 months continue current therapy [email or web address] Not available 09/05/2023 16:33:28 12/23/2023 12/23/2023 no contraindications to GLP 1 therapy we will try to get rex proved. 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 and she will get her pelvic exams there we will schedule a mammogram her request I will see her back in about 3 or 4 months dyslipidemia diabetes obesity discussed in detail [email or web address] Not available 12/23/2023 21:31:06 05/01/2024 05/01/2024 CBC CMP lipid hemoglobin A1c urinary microalbumin iron ferritin TIBC we will set up with Podiatry for diabetic foot exam titrate her Rex set her up with SI HF gynecology see me in 4 months healthy lifestyle care instructions [email or web address] Not available 05/07/2024 21:04:29 08/31/2024 08/31/2024 Healthy lifestyl e care instructions mammogram she will get all her pending blood work done take her medicines as prescribed hopefully that we get her blood pressure down she will see me back in 3 months she can take iron [id number] so the strategy to get her blood pressure down his regular walking lose 5-10 lb watch caffeine no supplements and take her antihypertensive daily [email or web address] Not available 09/02/2024 12:25:51 Plan of Treatment Reminders Order Date Submit Date Provider Last Modified By Organization Details Last Modified Time Details Appointments ANY 15 2024 09:00A Cecilia Wilder MD Not available Not available Not available Lab culture , urine 2024 025 [facility], [address], [place], [address], 05/24/2024 03:08:18 urinaly sis, dipstic k 2024 025 [place] In-Office Order, Internal Use Only DO Not Attach Compendium DO Not Attach Compendium, Do Not Delete/merge, [id number] 05/24/2024 16:49:28 cytolog y report, thin prep, smear or scrapin g, cervica l or vaginal 2024 025 [facility], [address], [place], [address], 05/25/2024 09:48:00 vaginal pathoge ns panel, TONNY+pro be, vaginal fluid 2024 025 [facility], [address], [place], [address], 05/24/2024 05:09:24 HbA1c (hemogl obin A1c), blood 2024 025 [facility], [address], [place], [address], 05/03/2024 08:25:20 albumin /creati nine, mass ratio, urine 2024 025 [facility], [address], [place], [address], 05/02/2024 13:13:10 CBC w/ auto diff 2024 025 [facility], [address], [place], [address], 05/02/2024 11:24:01 CMP, serum or plasma 2024 025 [facility], [address], [place], [address], 09/14/2024 14:40:26 lipid panel, serum 2024 025 [facility], [address], [place], [address], 05/04/2024 12:09:16 iron + total iron-bi nding capacit y (TIBC), serum 2024 025 [place] [facility], [address], [place], [address], 05/03/2024 02:57:08 ferriti n, serum or plasma 2024 025 [facility], [address], [place], [address], 06/07/2024 16:44:43 vitamin D, 25-hydr oxy, total, serum 2024 025 [facility], [address], [place], [address], 09/14/2024 14:40:25 CMP, serum or plasma 2023 024 [facility] Ureña, [address], [place], [address], 01/03/2024 15:19:46 CBC w/ auto diff 2023 024 EVANS Luis, [address], [place], [address], 01/03/2024 15:19:47 TSH, ultra-s ensitiv e, serum 2023 024 [facility], [address], [place], [address], 01/03/2024 15:19:47 unliste d lab - T4, free 2023 024 [place] [facility], [address], [place], [address], 01/03/2024 15:19:47 unliste d lab - T3 2023 024 [place] [facility], [address], [place], [address], 01/03/2024 15:19:47 HbA1c (hemogl obin A1c), blood 2023 024 [email or web address], [address], [place], [address], 01/13/2024 16:52:55 lipid panel, serum 2023 024 [place] [facility], [address], [place], [address], 01/03/2024 15:19:47 TSH, ultra-s ensitiv e, serum 2023 024 [place] [facility], [address], [place], [address], 08/27/2023 13:14:52 T3, free, serum or plasma 2023 024 [place] [facility], [address], [place], [address], 08/27/2023 13:14:54 unliste d lab - T4, free 2023 024 [place] [facility], [address], [place], [address], 08/27/2023 13:14:50 vitamin D, 25-hydr oxy, total, serum 2023 024 [facility], [address], [place], [address], 08/27/2023 13:14:54 HbA1c (hemogl obin A1c), blood 2023 024 [facility], [address], [place], [address], 08/27/2023 13:14:52 CBC w/ auto diff 2023 024 [facility], [address], [place], [address], 08/27/2023 13:14:53 lipid panel, serum 2023 024 [facility], [address], [place], [address], 08/27/2023 13:14:50 CMP, serum or plasma 2023 024 [facility], [address], [place], [address], 08/27/2023 13:14:51 Referral podiatr ist referra l 2024 025 [facility] Mario Linton Jr DPM, [address], [address], [place], [address], 07/20/2024 12:13:49 gynecol ogist referra l 2024 025 lan Chavez (Ob), [address] [place], [address], 05/19/2024 08:44:40 Procedures colonos copy screeni ng (PROC) 2023 024 [facility], [facility], [address], [address], [place], [address], 05/02/2024 13:02:43 Surgeries None recorde d. Imaging MAMMO, мария ann paula al [address] [facility], [address], [address], [place], [address], 08/31/2024 12:20:15 MAMMO, мария ann paula al 2023 024 [facility] (Imaging), [address], [place], [address], 02/21/2024 16:36:02 Medication Orders metform in ER 500 mg tablet, extende d release 24 hr 2024 025 [address] [facility] [facility], [address] [place], [place], [id number], 08/31/2024 17:11:45 atorvas tatin 10 mg tablet 2024 025 [address] [facility], [address] [place], [place], [id number], 08/31/2024 17:11:45 metroni dazole 0.75 % (37.5 mg/5 gram) vaginal gel 2024 025 [email or web address] [facility], [address] [place], [place], [id number], 05/22/2024 10:06:39 Mounjar o 7.5 mg/0.5 mL subcuta neous pen injecto r 2024 025 [email or web address] [facility], [address], [place], [id number], 07/13/2024 09:26:38 Mounjar o 2.5 mg/0.5 mL subcuta neous pen injecto r 2023 025 [facility], [address], [place], [place], [id number], 05/01/2024 10:51:27 Mounjar o 5 mg/0.5 mL subcuta neous pen injecto r 2023 024 [email or web address] [facility], [address], [place], [place], [id number], 05/01/2024 10:50:31 Patient TargetsNo targets recorded. Patient Instructions Encounter Date Encounter Id Patient Instructions Last Modified By Organization Details Last Modified Time 08/20/2023 [id number] diabetic eye exam* [email or web address] Not available 11/18/2023 11:29:29 05/01/2024 [id number] A healthy lifestyle: care instructions [email or web address] Not available 05/01/2024 10:25:54 05/22/2024 [id number] Attending Physician Attestation S: 43 yo F [...] recurrent BV. Dysuria - F/u dipstick, UCx. I did not personally see or examine the patient with the resident. I was physically present to provide indirect supervision through entire encounter. Plan discussed with resident as documented in my brief note above. 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 Referring Physician: Jammie Wilder, Internal Medicine, Encounter Date: 05/01/2024 Results Created Date Observation Date Name Description Value Unit Range Abnormal Flag Note LastModifiedBy Organization Detail LastModifiedTime 08/26/19 24 08/27/2023 LIPID PANEL cholesterol, total 209 mg/dL 100-19 9 above high normal Not Available [facility] ([facility]) [address] [place], [address], 08/27/2023 13:14:50 08/26/19 24 08/27/2023 LIPID PANEL triglyceride s 69 mg/dL 0-149 Not Available [facility] ([facility]) [address] [place], [address], 08/27/2023 13:14:50 08/26/19 24 08/27/2023 LIPID PANEL HDL cholesterol 78 mg/dL >39 Not Available [facility]) [address] [place], [address], 08/27/2023 13:14:50 08/26/19 24 08/27/2023 LIPID PANEL VLDL cholesterol bishop 12 mg/dL 5-40 Not Available [facility] ([facility]) [address] [place], [address], 08/27/2023 13:14:50 08/26/19 24 08/27/2023 LIPID PANEL LDL chol calc ([facility]) 119 mg/dL 0-99 above high normal Not Available [facility] ([facility]) [address] [place], [address], 08/27/2023 13:14:50 08/26/19 24 08/27/2023 T4, FREE T4,free(dire ct) 1.29 NG/dL 0.82-1 .77 Not Available [facility] ([facility]) [address] [place], [address], 08/27/2023 13:14:50 08/26/19 24 08/27/2023 COMP. METAB OLIC PANEL (14) glucose 89 mg/dL 70-99 Not Available [facility] ([facility]) [address] [place], [address], 08/27/2023 13:14:51 08/26/19 24 08/27/2023 COMP. METAB OLIC PANEL (14) BUN 10 mg/dL 6-24 Not Available [facility] ([facility]) [address] [place], [address], 08/27/2023 13:14:51 08/26/19 24 08/27/2023 COMP. METAB OLIC PANEL (14) creatinine 0.72 mg/dL 0.57-1 .00 Not Available [facility] ([facility]) [address] [place], [address], 08/27/2023 13:14:51 08/26/19 24 08/27/2023 COMP. METAB OLIC PANEL (14) eGFR 108 mL/mi n/1.7 3 >59 Not Available [facility] ([facility]) [address] [place], [address], 08/27/2023 13:14:51 08/26/19 24 08/27/2023 COMP. METAB OLIC PANEL (14) BUN/creatini ne ratio 14 9-23 Not Available [facility] ([facility]) [address] [place], [address], 08/27/2023 13:14:51 08/26/19 24 08/27/2023 COMP. METAB OLIC PANEL (14) sodium 138 mmol/ L 134-14 4 Not Available [facility] ([facility]) [address] [place], [address], 08/27/2023 13:14:51 08/26/19 24 08/27/2023 COMP. METAB OLIC PANEL (14) potassium 4.3 mmol/ L 3.5-5. 2 Not Available [facility] ([facility]) [address], [place], [address], 08/27/2023 13:14:51 08/26/19 24 08/27/2023 COMP. METAB OLIC PANEL (14) chloride 102 mmol/ L 96-106 Not Available [facility] ([facility]) [address] [place], [address], 08/27/2023 13:14:51 08/26/19 24 08/27/2023 COMP. METAB OLIC PANEL (14) carbon dioxide, total 21 mmol/ L 20-29 Not Available [facility] ([facility]) [address] [place], [address], 08/27/2023 13:14:51 08/26/19 24 08/27/2023 COMP. METAB OLIC PANEL (14) calcium 9.6 mg/dL 8.7-10 .2 Not Available [facility] ([facility]) [address], [place], [address], 08/27/2023 13:14:51 08/26/19 24 08/27/2023 COMP. METAB OLIC PANEL (14) protein, total 7.3 g/dL 6.0-8. 5 Not Available [facility] ([facility] [address] [facility] [place], [address], 08/27/2023 13:14:51 08/26/19 24 08/27/2023 COMP. METAB OLIC PANEL (14) albumin 4.4 g/dL 3.9-4. 9 Not Available [facility] ([facility] [address] [facility] [place], [address], 08/27/2023 13:14:51 08/26/19 24 08/27/2023 COMP. METAB OLIC PANEL (14) globulin, total 2.9 g/dL 1.5-4. 5 Not Available [facility] ([facility]) [address] [facility], [place], [address], 08/27/2023 13:14:51 08/26/19 24 08/27/2023 COMP. METAB OLIC PANEL (14) A/G ratio 1.5 1.2-2. 2 Not Available [facility] ([facility]) [address] [place], [address], 08/27/2023 13:14:51 08/26/19 24 08/27/2023 COMP. METAB OLIC PANEL (14) bilirubin, total <0.2 mg/dL 0.0-1. 2 Not Available [facility] ([facility]) [address] [place], [address], 08/27/2023 13:14:51 08/26/19 24 08/27/2023 COMP. METAB OLIC PANEL (14) alkaline phosphatase 90 IU/L 44-121 Not Available [facility] ([facility]) [address] [place], [address], 08/27/2023 13:14:51 08/26/19 24 08/27/2023 COMP. METAB OLIC PANEL (14) AST (SGOT) 12 IU/L 0-40 Not Available [facility] ([facility]) [address] [place], [address], 08/27/2023 13:14:51 08/26/19 24 08/27/2023 COMP. METAB OLIC PANEL (14) ALT (SGPT) 12 IU/L 0-32 Not Available [facility] ([facility]) [address] [place], [address], 08/27/2023 13:14:51 08/26/19 24 08/27/2023 HEMOG LOBIN A1C hemoglobin A1C 6.5 % 4.8-5. 6 above high normal Predi abete s: 5.7 - 6.4 Diabe juan: >6.4 Glyce deepak contr ol for adult s with diabe juan: <7.0 Not Available [facility] ([facility]) [address] [facility], [place], [address], 08/27/2023 13:14:52 08/26/19 24 08/27/2023 TSH TSH 1.420 uIU/m L 0.450- 4.500 Not Available [facility] ([facility]) [address] [facility], [place], [address], 08/27/2023 13:14:52 08/26/19 24 08/27/2023 CBC WITH DIFFE RENTI AL/PL ATELE T WBC 6.8 x10e3 /uL 3.4-10 .8 Not Available [facility] ([facility]) [address] [facility], [place], [address], 08/27/2023 13:14:53 08/26/19 24 08/27/2023 CBC WITH DIFFE RENTI AL/PL ATELE T RBC 3.71 x10e6 /uL 3.77-5 .28 below low normal Not Available [facility] ([facility]) [address] [place], [address], 08/27/2023 13:14:53 08/26/19 24 08/27/2023 CBC WITH DIFFE RENTI AL/PL ATELE T hemoglobin 9.5 g/dL 11.1-1 5.9 below low normal Not Available [facility] ([facility]) [address] [facility], [place], [address], 08/27/2023 13:14:53 08/26/19 24 08/27/2023 CBC WITH DIFFE RENTI AL/PL ATELE T hematocrit 29.7 % 34.0-4 6.6 below low normal Not Available [facility] ([facility]) [address] [place], [address], 08/27/2023 13:14:53 08/26/19 24 08/27/2023 CBC WITH DIFFE RENTI AL/PL ATELE T MCV 80 fL 79-97 Not Available [facility] ([facility]) [address] [facility], [place], [address], 08/27/2023 13:14:53 08/26/19 24 08/27/2023 CBC WITH DIFFE RENTI AL/PL ATELE T MCH 25.6 pg 26.6-3 3.0 below low normal Not Available [facility] ([facility]) [address] [facility], [place], [address], 08/27/2023 13:14:53 08/26/19 24 08/27/2023 CBC WITH DIFFE RENTI AL/PL ATELE T MCHC 32.0 g/dL 31.5-3 5.7 Not Available [facility] ([facility]) [address] [facility], [place], [address], 08/27/2023 13:14:53 08/26/19 24 08/27/2023 CBC WITH DIFFE RENTI AL/PL ATELE T RDW 17.2 % 11.7-1 5.4 above high normal Not Available [facility] ([facility]) [address] [facility], [place], [address], 08/27/2023 13:14:53 08/26/19 24 08/27/2023 CBC WITH DIFFE RENTI AL/PL ATELE T platelets 319 x10e3 /uL 150-45 0 Not Available [facility] ([facility]) [address] [facility], [place], [address], 08/27/2023 13:14:53 08/26/19 24 08/27/2023 CBC WITH DIFFE RENTI AL/PL ATELE T neutrophils 55 % notest ab. Not Available [facility] ([facility]) [address] [facility], [place], [address], 08/27/2023 13:14:53 08/26/19 24 08/27/2023 CBC WITH DIFFE RENTI AL/PL ATELE T lymphs 37 % notest ab. Not Available [facility] ([facility]) [address] [facility], [place], [address], 08/27/2023 13:14:53 08/26/19 24 08/27/2023 CBC WITH DIFFE RENTI AL/PL ATELE T monocytes 7 % notest ab. Not Available [facility] ([facility]) [address] [facility], [place], [address], 08/27/2023 13:14:53 08/26/19 24 08/27/2023 CBC WITH DIFFE RENTI AL/PL ATELE T eos 1 % notest ab. Not Available [facility] ([facility]) [address] [facility], [place], [address], 08/27/2023 13:14:53 08/26/19 24 08/27/2023 CBC WITH DIFFE RENTI AL/PL ATELE T basos 0 % notest ab. Not Available [facility] ([facility]) [address] [facility], [place], [address], 08/27/2023 13:14:53 08/26/19 24 08/27/2023 CBC WITH DIFFE RENTI AL/PL ATELE T neutrophils (absolute) 3.7 x10e3 /uL 1.4-7. 0 Not Available [facility] ([facility]) [address] [facility], [place], [address], 08/27/2023 13:14:53 08/26/19 24 08/27/2023 CBC WITH DIFFE RENTI AL/PL ATELE T lymphs (absolute) 2.5 x10e3 /uL 0.7-3. 1 Not Available [facility] ([facility]) [address] [facility], [place], [address], 08/27/2023 13:14:53 08/26/19 24 08/27/2023 CBC WITH DIFFE RENTI AL/PL ATELE T monocytes(ab solute) 0.5 x10e3 /uL 0.1-0. 9 Not Available [facility] ([facility]) [address] [facility], [place], [address], 08/27/2023 13:14:53 08/26/19 24 08/27/2023 CBC WITH DIFFE RENTI AL/PL ATELE T eos (absolute) 0.1 x10e3 /uL 0.0-0. 4 Not Available [facility] ([facility]) [address] [facility], [place], [address], 08/27/2023 13:14:53 08/26/19 24 08/27/2023 CBC WITH DIFFE RENTI AL/PL ATELE T baso (absolute) 0.0 x10e3 /uL 0.0-0. 2 Not Available [facility] ([facility]) [address] [facility], [place], [address], 08/27/2023 13:14:53 08/26/19 24 08/27/2023 CBC WITH DIFFE RENTI AL/PL ATELE T immature granulocytes 0 % notest ab. Not Available [facility] ([facility]) [address] [facility], [place], [address], 08/27/2023 13:14:53 08/26/19 24 08/27/2023 CBC WITH DIFFE RENTI AL/PL ATELE T immature grans (abs) 0.0 x10e3 /uL 0.0-0. 1 Not Available [facility] ([facility]) [address] [place], [address], 08/27/2023 13:14:53 08/26/19 24 08/27/2023 TRIIO DOTHY SHAWN E (T3), FREE triiodothyro nine (T3), free 3.0 pg/mL 2.0-4. 4 Not Available [facility] ([facility]) [address] [place], [address], 08/27/2023 13:14:54 08/26/19 24 08/27/2023 VITAM IN [...] Medic ine). 2010. Dieta ry refer ence intmayr es for calci um and D. Te mcmanus [place]: [facility] . 2. Zehra bonner MF, Jessee franco [place], Jj off-F errar i BERGER, et al. Evalu ation , treat ment, and preve ntion of vitam in D defic iency : an Endoc rine Socie ty clini bishop pract ice guide line. JCEM. 2010; 96(7) :1911 -30. Not Available [facility] ([facility]) [address] [facility], [place], [address], 08/27/2023 13:14:54 08/26/19 24 08/26/2023 Hemog lobin A1c/H emogl obin. total in Blood hemoglobin A1C/hemoglob in.total in blood 6.5 % HGB A1C 6.5 % Not Available Not Available 06/06/2024 11:12:41 09/08/19 24 09/09/2023 IRON AND TIBC iron bind.cap.(TI BC) 348 ug/dL 250-45 0 Not Available [facility] ([facility]) [address] [facility], [place], [address], 09/09/2023 08:28:27 09/08/19 24 09/09/2023 IRON AND TIBC UIBC 292 ug/dL 131-42 5 Not Available [facility] [address] [facility], [place], [address], 09/09/2023 08:28:27 09/08/19 24 09/09/2023 IRON AND TIBC iron 56 ug/dL 27-159 Not Available [facility] ([facility]) [address] [place], [address], 09/09/2023 08:28:27 09/08/19 24 09/09/2023 IRON AND TIBC iron saturation 16 % 15-55 Not Available [facility] ([facility]) [address] [facility], [place], [address], 09/09/2023 08:28:27 09/08/19 24 09/09/2023 VITAM IN B12 vitamin B12 733 pg/mL 232-12 45 Not Available [facility] ([facility]) [address] [place], [address], 09/09/2023 08:28:28 09/08/19 24 09/09/2023 FOLAT E (FOLI C ACID) , SERUM folate (folic acid), serum 9.6 NG/mL >3.0 A serum folat e momo ntrat ion of less than 3.1 ng/mL is consi dered to repre sent clini bishop defic iency . Not Available [facility] ([facility]) [address] [place], [address], 09/09/2023 08:28:29 09/08/19 24 09/09/2023 CHRISTINE TIN ferritin 14 NG/mL 15-150 below low normal Not Available [facility] ([facility]) [address] [place], [address], 09/09/2023 08:28:31 09/08/19 24 09/08/2023 RETIC ULOCY TE COUNT reticulocyte count 1.5 % 0.6-2. 6 Not Available [facility] ([facility]) [address] [place], [address], 09/09/2023 08:28:32 09/08/19 24 09/09/2023 VITAM IN [...] and D. Te mcmanus [place]: [facility] Press . 2. Zehra bonner MF, Jessee franco [place], Jj off-F errar i BERGER, et al. Evalu ation , treat ment, and preve ntion of vitam in D defic iency : an Endoc rine Socie ty clini bishop pract ice guide line. JCEM. 2010; 96(7) :1911 -30. Not Available [facility] ([facility]) [address] [place], [address], 09/09/2023 08:28:33 05/02/19 25 05/02/2024 HbA1c (hemo globi n A1c), blood A1C 5.7 normal Not Available [facility] ([facility]) [address] [place], [address], 05/02/2024 23:05:03 05/22/19 25 05/23/2024 URINE CULTU RELIVE NE urine culture, routine FINAL REPORT Not Available [facility] ([facility]) [address] [place], [address], 05/24/2024 03:08:17 05/22/19 25 05/23/2024 URINE CULTU REIRONI NE result 1 COMMEN T Mixed uroge nital yfn 25,00 0-50, 000 colon y formi ng units per mL Not Available [facility] ([facility]) [address] [facility], [place], [address], 05/24/2024 03:08:17 05/22/19 25 05/23/2024 NUSWA B VAGIN ITIS PLUS (VG+) atopobium vaginae HIGH - 2 score abnormal Not Available [facility] ([facility]) [address] [facility], [place], [address], 05/24/2024 05:09:24 05/22/19 25 05/23/2024 NUSWA B VAGIN ITIS PLUS (VG+) bvab 2 MODERA TE - 1 score Not Available [facility] ([facility]) [address] [facility], [place], [address], 05/24/2024 05:09:24 05/22/19 25 05/23/2024 NUSWA B VAGIN ITIS PLUS (VG+) megasphaera 1 LOW - 0 score Calcu late total score by emmanuel g the 3 indiv idual bacte rial [...] prese nce of BV. Not Available [facility] ([facility]) [address] [facility], [place], [address], 05/24/2024 05:09:24 05/22/19 25 05/23/2024 NUSWA B VAGIN ITIS PLUS (VG+) nati albicans, TONNY NEGATI VE negati ve Not Available [facility] ([facility]) [address] [facility], [place], [address], 05/24/2024 05:09:24 05/22/19 25 05/23/2024 NUSWA B VAGIN ITIS PLUS (VG+) nati glabrata, TONNY NEGATI VE negati ve Not Available [facility] ([facility]) [address] [facility], [place], [address], 05/24/2024 05:09:24 05/22/19 25 05/24/2024 NUA B VAGIN ITIS PLUS (VG+) trich vag by TONNY NEGATI VE negati ve Not Available [facility] ([facility]) [address] [facility], [place], [address], 05/24/2024 05:09:24 05/22/19 25 05/24/2024 NUA B VAGIN ITIS PLUS (VG+) chlamydia trachomatis, TONNY NEGATI VE negati ve Not Available [facility] ([facility]) [address] [facility], [place], [address], 05/24/2024 05:09:24 05/22/19 25 05/24/2024 NUA B VAGIN ITIS PLUS (VG+) neisseria gonorrhoeae, TONNY NEGATI VE negati ve Not Available [facility] ([facility]) [address] [facility], [place], [address], 05/24/2024 05:09:24 05/22/19 25 05/23/2024 IGP, APTIM A HPV, RFX 16/18 ,45 HPV aptima NEGATI VE negati ve This nucle ic acid ampli ficat ion test detec ts fourt een high- risk HPV types (16,1 8,31, 33,35 ,39,4 5,51, 52,56 ,58,5 9,66, 68) witho ut diffe renti ation . Not Available [facility] ([facility]) [address] [place], [address], 05/25/2024 09:48:00 05/22/19 25 05/25/2024 IGP, APTIM A HPV, RFX 16/18 ,45 diagnosis: COMMEN T NEGAT CELESTINE FOR INTRA EPITH ELIAL LESIO N OR MALIG CELESTINE . CELLU JUDI DREW ES ASSOC IATED WITH INFLA MMATI ON ARE PRESE NT. Not Available [facility] ([facility]) [address] [place], [address], 05/25/2024 09:48:00 05/22/19 25 05/25/2024 IGP, APTIM A HPV, RFX 16/18 ,45 specimen adequacy: PARUL Esparza Satis facto ry for evalu ation . Endoc ervic al and/o r squam ous metap lasti c cells (endo cervi bishop compo nent) are prese nt. Not Available [facility] ([facility]) [address] [place], [address], 05/25/2024 09:48:00 05/22/19 25 05/25/2024 IGP, APTIM A HPV, RFX 16/18 ,45 clinician provided ICD10: PARUL Esparza Z01.4 19 Not Available [facility] ([facility]) [address] [place], [address], 05/25/2024 09:48:00 05/22/19 25 05/25/2024 IGP, APTIM A HPV, RFX 16/18 ,45 performed by: PARUL reed, Cytot pa yun t (ASCP ) Not Available [facility] ([facility]) [address] [place], [address], 05/25/2024 09:48:00 05/22/1905/25/2024 IGP, APTIM A HPV, RFX 16/18 ,45 . . Not Available [facility] ([facility]) [address] [place], [address], 05/25/2024 09:48:00 05/22/19 25 05/25/2024 IGP, APTIM A HPV, RFX 16/18 ,45 note: PARUL Esparza The Pap smear is a scree rigo [...] ts do occur . Not Available [facility] ([facility]) [address] [facility], [place], [address], 05/25/2024 09:48:00 05/22/19 25 05/25/2024 IGP, APTIM A HPV, RFX 16/18 ,45 test methodology: COMMEN T This liqui d based ThinP rep(R ) pap test was kathie gill with the use of an image guide minda meza. Not Available [facility] ([facility]) [address] [facility], [place], [address], 05/25/2024 09:48:00 05/22/19 25 05/25/2024 IGP, APTIM A HPV, RFX 16/18 ,45 HPV genotype reflex COMMEN T Crite elen not met, HPV Genot ype not perfo rmed. Not Available [facility] ([facility]) [address] [facility], [place], [address], 05/25/2024 09:48:00 05/24/19 25 05/24/2024 urina lysis , dipst ick Leukocytes Large Not Available In-Offi ce Order Internal Use Only DO Not Attach Compendium DO Not Attach Compendium, Do Not Delete/merge, [id number] 05/22/2024 09:30:43 05/24/19 25 05/24/2024 urina lysis , dipst ick Nitrite negati ve Not Available In-Office Order Internal Use Only DO Not Attach Compendium DO Not Attach Compendium, Do Not Delete/merge, [id number] 05/22/2024 09:30:43 05/24/19 25 05/24/2024 urina lysis , dipst ick Urobilinogen .2 Not Available In-Of fice Order Internal Use Only DO Not Attach Compendium DO Not Attach Compendium, Do Not Delete/merge, 05/22/2024 09:30:43 05/24/1905/24/2024 urina lysis , dipst ick Protein 30 Not Available In-Office Order Internal Use Only DO Not Attach Compendium DO Not Attach Compendium, Do Not Delete/merge, 05/22/2024 09:30:43 05/24/1905/24/2024 urina lysis , dipst ick pH 6.0 [...] 05/24/2024 urina lysis , dipst ick Specific [place] 1.030 Not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 Complains today that her forearms and fingers get swollen when she is walking/ex ercising but then resolves afterwards . Noticed it only recently as she has increased her exercise. Admits to staying hydrated during the day. Depression screening 171 920367 Z13.31 PHQ 2/9 was negative in office today (0 out of 27) Morbid obesity 948095775 E66.01 Advised decreased portion sizes, good food choices, limited eating out or fast food and eliminate soda and juice from diet. Advised physical activity daily and offered encouragem ent to continue with positive changes made so far. Bacterial vaginosis 4195 17813 N76.0 Tested positive for BV at last visitShe took the abx for UTI and BV after last visit, states the symptoms improved while on medication and for a few days afterwards but then they returned.- swab ordered again to see if BV was treated completed Bilateral localized swelling of hands [id number] 8540444 R22.33 Complains today that her forearms and [...] Remove tight rings and watches before walking. [id number] BARBARA CASAS (Adult Med) [address] [place] [address] 57555-554 0 10/27/2022 08:33:37 10/28/2022 12:38:22 Morbid obesity 801944977 E66.01 Advised decreased portion sizes, good food choices, limited eating out or fast food and eliminate soda and juice from diet. Advised physical activity daily and offered encouragem ent to continue with positive changes made so far. Urinary tr act infectious disease 02944064 N39.0 + klebsiella in August. Symptoms improved [...] accompanie d with fevers Screening mammography 24 981928 Z12.31 Recently turned 42 years old, states family history of breast cancer. Will initiate yearly screenings . Depression screening 171 151311 Z13.31 PHQ 2/9 was negative in office today (0 out of 27) [id number] BARBARA CASAS (Adult Med) [address] [place] [address] 48597-236 0 11/26/2022 08:42:16 11/27/2022 11:52:26 Type 2 diabetes mellitus 57002765 E11.9 HgbA1c: 6.2 today (11/26/2022 ), 6.4 [...] 6 months Urinary tr act infectious disease 64825641 N39.0 UTI symptoms resolved since last visit and treatment, no urinary complaints today Morbid obesity 600010890 E66.01 Now on rybelsus, has lost 11 pounds since last visitAdvis ed decreased portion sizes, good food choices, limited eating out or fast food and eliminate soda and juice from diet. Advised physical activity daily and offered encouragem ent to continue with positive changes made so far. Depression screening 171 499331 Z13.31 PHQ 2/9 was negative in office today (0 out of 27) Elevated blood-pressure reading without diagnosis of hypertension 007983425 R03.0 BP elevated today at 143/95, no prior history of elevated blood pressureJu st finished her work shift overnight so tired but denies symptoms of high blood pressureSt ates she checks BP at work regularly and always normal around 120/80- aware of elevated reading today- keep eye on BP, contact me if systolic > 140 and diastolic >90 [id number] Jammie Wilder MD [facility] (Adult Med) [address] [place] [address] 84236-906 0 08/20/2023 10:43:57 08/20/2023 12:15:05 Type 2 diabetes mellitus 35202026 E11.9 Chronic constipation 236 731766 K59.09 Hyperlipidemia 36389896 E78.5 Long-term drug therapy 612142722 Z79.899 Vitamin D deficiency 347 20074 E55.9 Screening for malignant neoplasm of colon 679302931 Z12.11 Obesity 395721548 E66.9 [id number] Jammie Wilder MD [facility] [employer] [facility] [place] [address] [place] [address] 12/23/2023 10:31:48 12/23/2023 12:20:44 Hyperlipidemia 37714363 E78.5 Type 2 nydia betes mellitus 66084016 E11.9 Obesity 072179927 E66.9 Screening mammography 24 786045 Z12.31 [id number] Jammie Wilder MD [facility] [employer] [address] [place] [address] 05/01/2024 10:05:03 05/01/2024 10:56:33 Body mass index 30+ - obesity 533428790 Z68.38 Obesity 441234094 E66.9 Hyperlipidemia 43833634 E78.5 Type 2 nydia betes mellitus 50209597 E11.9 Vitamin D deficiency 347 68560 E55.9 Anemia 282204039 D64.9 Gynecologi c examination 15910584 Z01.360 [id number] CATRINA SANTOS MD [facility] (MANAGER FACILITY) [address] [place] [address] 99070-820 0 05/22/2024 09:02:31 05/22/2024 09:02:32 Gynecologic examination 79905633 Z01.419 LGSIL 2 years ago; will repeat [...] with gel until nuswab/UA reflex returns. Vaginitis 67958014 N76.0 hx of recurrent BV; states her sx aren't too disruptive ; requesting gel to treat. Will provide.Nu swab ordered; follow up UA culture results in case this is a UTI. [id number] Jammie Wilder MD [facility] [employer] [address] [place] [address] 08/31/2024 10:05:19 08/31/2024 11:29:27 Body mass index 30+ - obesity 225674943 Z68.35 Obese class I 6197479567 02152 E66.811 Screening mammography 24 793404 Z12.31 Hypercholesterolemia 136 02687 E78.00 Type 2 nydia betes mellitus 50652691 E11.9 Vitamin D deficiency 347 66169 E55.9 Hyperlipidemia 27810687 E78.5 Essential hypertension 84220984 I10 Health Concerns Section Related Observation LastModified by Organization Detai ls LastModified Time None Recorded Concern Status LastModified by Organization Details LastModified Time None Recorded Advance Directives Directive N: Payers Encounter Date Sequence Insurance Name Policy Number Policy Hinkle Covered Member ID Hinkle Member ID Guarantor Name 08/20/2023 1 [place] Caroline Mix [id number] Caroline Mix 12/23/2023 1 [facility] (MEDICARE REPLACEMENT/A DVANTAGE - HMO) [id number] Caroline Mix [id number] Caroline Mix 05/01/2024 1 [facility] (MEDICARE REPLACEMENT/A DVANTAGE - HMO) [id number] Caroline Mix [id number] Caroline Mix 05/22/2024 1 [facility] (MEDICARE REPLACEMENT/A DVANTAGE - HMO) [id number] Caroline Mix [id number] Caroline Mix 08/31/2024 1 [facility] (MEDICARE REPLACEMENT/A DVANTAGE - HMO) [id number] Caroline Mix [id number] Caroline Mix Notes Date Note Type Note Provider Name and Address Organization Details Recorded Time 08/20/2023 text/html 43-year-old overweight diabetic with dyslipidemia and a low vitamin D level comes in for follow-up of medical problems also has a history of chronic constipation currently taking metformin and Rybelsus Jammie Wilder MD Attn: [address] [place], [address], [facility] 09/05/2023 16:34:15 12/23/2023 text/html hyperlipidemia n eeds blood work she is taking the atorvastatin no problems obesity trouble losing weight diabetes needs blood work has stopped her metformin unclear why Jammie Wilder MD Attn: Accounting[address] [place], [address], [facility] 12/23/2023 21:32:17 05/01/2024 text/html diabetes no polyphagia [...] GLP 1 agent Jammie Wilder MD Attn: [address] [place], [address], [facility] 05/07/2024 21:05:30 05/22/2024 text/html [...] starting age 42 CATRINA SANTOS MD Attn: Accounting[address] [place], [address], [facility] 06/14/2024 11:04:53 08/31/2024 text/html Hypertension blo od pressure is up a little bit today not taking her medicines on a daily basis diabetes she needs get blood work done anemia needs to get a blood work done but she is fairly asymptomatic no side effects from any medications at this time Jammie Wilder MD Attn: [address]ing[address] [place], [address], [facility] 09/02/2024 12:26:15 OBGyn Episode Ob Episode Information Episode Created Date Number of Fetuses Patient Bloodtype Patient rh Status Prepregnancy Weight lbs Domestic Partner Domestic Partner Phone Father Name Nursing Scheduler Status 05/15/19 16 1 CLOSED Fetus Data First Name Last Name Admitted to NICU Weight (g) Sex Living Outcome Pediatric Complications Fetus ID Race Codes Race Delivery Type 2267.96 M Full Term 71513 Standard Vaginal Delivery Dionte Calculation Initial Dionte [...] Domestic Partner Domestic Partner Phone Father Name Nursing Scheduler Status 05/15/19 16 1 CLOSED Fetus Data First Name Last Name Admitted to NICU Weight (g) Sex Living Outcome Pediatric Complications Fetus ID Race Codes Race Delivery Type 2267.96 F Full Term 74203 Standard Vaginal Delivery Dionte Calculation Initial Dionte [...] Domestic Partner Domestic Partner Phone Father Name Nursing Scheduler Status 05/15/19 16 1 CLOSED Fetus Data First Name Last Name Admitted to NICU Weight (g) Sex Living Outcome Pediatric Complications Fetus ID Race Codes Race Delivery Type 2267.96 M Full Term 41776 Standard Vaginal Delivery Dionte Calculation Initial Dionte [...]
== END 2024-09-14 15:03 | disposition home or self-care (01) ==
LOC: ANHIMG 15:03
PROVIDERS: PCP Internal Medicine; Visit Provider Internal Medicine
DX: Z12.31 Encounter for screening mammogram for malignant neoplasm of breast (principal)
CPT/HCPCS: 77063; 77067

== ENCOUNTER 2024-11-24 07:29 | Emergency (ER) | payer MEDICARE, SELFPAY ==
--- NOTE | ~2024-11-24 | US_ITS ---
EXAMINATION:US venous doppler LE LT INDICATION:Left leg pain TECHNIQUE: Multiple grayscale, color flow and Doppler images of the left lower extremity deep venous systems were obtained and reviewed. COMPARISON:No prior studies for comparison. FINDINGS: The common femoral, superficial femoral and popliteal veins demonstrate normal respiratory variation, augmentation and compressibility. Color flow is also seen within the posterior tibial, pe roneal, greater saphenous and profunda veins. IMPRESSION: 1: No lower extremity deep venous thrombosis. Reviewed, dictated and finalized at location A.
--- OUTSIDE RECORDS SUMMARY | 2024-11-24 07:31 | XMS_ITS | Encounter Summary ---
Author Organization [facility] Address [facility] [place] [address] Care Team Providers Care Right Of Way Agent Name Role Phone Aliza [place] MD Primary Care Provider [phone] Encounter Details Date Type Department Care Team (Latest Contact Info) Description 12/30/2023 Bulsara Advertisingt Message Enc [facility] Multispecialty Care - [place] [address] [place] [address] [address] [place] [address] [place] [address] [place] [address] [address] [place], [place] [id number] Blood pressure pills Social History Tobacco Use [...] documented as of this encounter Care Teams Right Of Way Agent Relationship Specialty Start Date End Date Aliza [place] MD [facility] [address] PCP - General INTERNAL MEDICINE 12/07/23 documented as of this encounter
--- OUTSIDE RECORDS SUMMARY | 2024-11-24 07:31 | XMS_ITS | Clinical Summary ---
Author Organization [facility] Care Team Providers Care Railroad Wheels And Axles Inspector Name Role Phone Unavailable Primary Care Provider [...] 19+ 3-dose series) 2001 Pap Smear 10/01/2003 Human Papillomavirus (HPV) Immunization (1 - 3-dose SCDM series) 2009 Cervical Cancer Screening (CCS) 2012 HPV/Cotest 2012 SARS-COV-2 Immunization ( season) 2023 Influenza Immunization (#1) 2024 Respiratory Syncytial Virus (RSV) Immunization (Adult) (1 [...]
--- OUTSIDE RECORDS SUMMARY | 2024-11-24 07:31 | XMS_ITS | Clinical Summary ---
Author Organization [facility] [employer] Address [address] [place] [address] Care Team Providers Care Plumbing Hardware Assembler Name Role Phone Unavailable Primary Care Provider Unavailabl e Source Comments [facility] [employer],non-owned Affiliates and Associated Physician Practices is amultiple site organization consisting of ambulatory clinics and hospital sitesin [place], [place], [place] and [place]. This disclosure is being madepursuant to the Care Everywhere program and may not contain all information available regarding this patient. 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
--- OUTSIDE RECORDS SUMMARY | 2024-11-24 07:32 | XMS_ITS | Clinical Summary ---
Author Organization [facility] Address [address] [place] [address] Care Team Providers Care Dot Net Architect Name Role Phone Aliza [place] MD Primary Care Provider [phone] Allergies Active Allergy Reactions Criticality Noted Date [...] s:Hyperlipidemia associated with type 2 diabetes mellitus ([facility] HHS/HCC) TAKE 1 TABLET(10 MG) BY MOUTH DAILY 90 tablet 06/06/2024 Active metFORMIN ER (GLUCOPHAGE-XR) 500 MG 24 hr tabletIndication s:Type 2 diabetes mellitus with hyperglycemia, without long-term current use of insulin ([facility] HHS/HCC) TAKE 1 TABLET(500 MG) BY MOUTH TWICE DAILY WITH MEALS 180 tablet 1 06/06/2024 Active losartan (COZAAR) 50 MG tabletIndication s:Hypertension associated with type 2 diabetes mellitus (CMS/HCC HHS/HCC) TAKE 1 TABLET(50 MG) BY MOUTH DAILY 30 tablet 09/08/2024 Active Social History Tobacco Use Types Packs/Day Years [...] 7:34 AM CDT Height 165.1 cm (5' 5) 12/27/2023 7:34 AM CDT Body Mass Index [...] Years) (1 of 2 - PCV) 2001 HPV Vaccines (1 - 3-dose SCDM series) 2009 Cervical Cancer Screening Pap with HPV Testing (Age 30 to 64) Every 5 Years 2012 Cervical Cancer Screening with HPV 2012 Mammogram Screening 2022 COVID-19 Vaccine ( season) 2023 02/05/2021, 02/05/2021, 01/15/2021, Additional history exists Hemoglobin A1C 02/26/2024 08/26/2023 PHQ-2 (Physician [place]) 04/19/2024 12/27/2023 Annual Physical 12/26/2024 12/27/2023 Diabetes: Retinopathy Eye Exam 10/14/2025 10/15/2023 Meningococcal B Vaccine Aged Out No l [...] Med Group Scanned SCANNING Final Resu lt [facility] ONBASE * HEMOGLOBIN, GLYCOSYLATED (08/26/2023) HGB A1C 6.5 % 08/26/2023 us Default History Genericprovider LABORATORY Final Result from Last 3 Months or Most Recently Relevant to Health Maintenance Care Teams Dot Net Architect Relationship Specialty Start Date End Date Aliza [place] MD [facility] [address] [place] [address] PCP - General INTERNAL MEDICINE 12/07/23
[2024-11-24 07:45] VITALS: BP 158/95; PULSE 88; RESP 18; TEMP 36.6; O2SAT 100
--- OUTSIDE RECORDS SUMMARY | 2024-11-24 07:54 | XMS_ITS | Clinical Summary ---
Author Organization [facility] [employer] Address [address] [facility] [place] [address] Care Team Providers Care Knife Grinder Name Role Phone Unavailable Primary Care Provider Unavailabl e Source Comments [facility] [employer],non-owned Affiliates and Associated Physician Practices is amultiple site organization consisting of ambulatory clinics and hospital sitesin [place], [place], [place] and [place]. This disclosure is being madepursuant to the Care Everywhere program and may not contain all information available regarding this patient. 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
--- OUTSIDE RECORDS SUMMARY | 2024-11-24 07:54 | XMS_ITS | Encounter Summary ---
Author Organization [facility] Address [facility] [place] [address] Care Team Providers Care Data Administrator Name Role Phone Aliza [place] MD Primary Care Provider [phone] Encounter Details Date Type Department Care Team (Latest Contact Info) Description 12/30/2023 [employer]st Message Enc [facility] Medical Group Multispecialty Care - [place] [address] [place] [address] [address] [place] [address] [place] [address] [place] [address] [address] [place], [place] [id number] Blood pressure pills Social History Tobacco Use [...] documented as of this encounter Care Teams Data Administrator Relationship Specialty Start Date End Date Aliza [place] MD [facility] [address] PCP - General INTERNAL MEDICINE 12/07/23 documented as of this encounter
--- OUTSIDE RECORDS SUMMARY | 2024-11-24 07:54 | XMS_ITS | Clinical Summary ---
Author Organization [facility] Address [address] [place] [address] Care Team Providers Care University Lecturer Name Role Phone Aliza [place] MD Primary Care Provider [phone] Allergies Active Allergy Reactions Criticality Noted Date [...] s:Hyperlipidemia associated with type 2 diabetes mellitus ([facility] HHS/HCC) TAKE 1 TABLET(10 MG) BY MOUTH DAILY 90 tablet 06/06/2024 Active metFORMIN ER (GLUCOPHAGE-XR) 500 MG 24 hr tabletIndication s:Type 2 diabetes mellitus with hyperglycemia, without long-term current use of insulin ([facility] HHS/HCC) TAKE 1 TABLET(500 MG) [...] exists Hemoglobin A1C 02/26/2024 08/26/2023 PHQ-2 (Physician [place]) 04/19/2024 12/27/2023 Annual Physical 12/26/2024 12/27/2023 Diabetes: [...] Med Group Scanned SCANNING Final Resu lt [facility] * HEMOGLOBIN, GLYCOSYLATED (08/26/2023) HGB A1C 6.5 % 08/26/2023 us Default History Genericprovider LABORATORY Final Result from Last 3 Months or Most Recently Relevant to Health Maintenance Care Teams University Lecturer Relationship Specialty Start Date End Date Aliza [place] MD [facility]8 [facility] [address] [place] [address] PCP - General INTERNAL MEDICINE 12/07/23
--- OUTSIDE RECORDS SUMMARY | 2024-11-24 07:54 | XMS_ITS | Clinical Summary ---
Author Organization [facility] Care Team Providers Care Stock Receiver Name Role Phone Unavailable Primary Care Provider [...]
--- NOTE | 2024-11-24 08:04 | ED_ITS ---
HPI - Extremity Problem General Chief complaint: Extremity Problem,Nontraumatic Stated complaint: L. leg swollen, no injury, HX dvt Time Seen by Provider: 11/24/24 07:49 History of Present Illness HPI Narrative: Patient is a 44-year-old female who presents ER with pain to the left lower extremity. Mainly the calf and back of the left thigh. Questionable swelling. History DVT in the past. No chest pain or shortness of breath. No known trauma or injury. She did take ibuprofen with mild improvement of pain at 1 point. Worse with physical movement. Related Data Home Medications ?Medication ?Instructions ?Recorded ?Confirmed ?Last Taken ?Type atorvastatin 10 mg tablet 10 mg PO DAILY 12/01/23 02/04/24 02/03/24 History metformin 500 mg tablet,extended 500 mg PO BID 12/01/23 02/04/24 02/03/24 History release 24 hr Allergies Allergy/AdvReac Type Severity Reaction Status Date / Time No Known Allergies Allergy Verified 11/24/24 07:48 Review of Systems Constitutional: Constitutional: Reports no additional constitutional complaints Cardiovascular: Cardiovascular: Reports no additional cardiovascular complaints Respiratory: Respiratory: Reports no additional respiratory complaints Musculoskeletal: Musculoskeletal: Reports no additional musculoskeletal complaints [facility] Past Medical History Medical History (Updated 11/24/24 @ 08:33 by Mandeep Pro MD) Constipation Diabetes Obesity Social History Social History Smoking status: Never smoker Alcohol intake: current Drinks per week: 1 Substance use: never Substance use type: does not use Living arrangements: with family Spiritual care concerns: No Exam Narrative: GENERAL: Well-appearing, well-nourished, and in no acute distress. HEAD: Normocephalic, atraumatic. ENT: Mucous membranes moist. CHEST: Clear to auscultation. No respiratory distress. HEART: Regular rate and rhythm. Normal peripheral pulses. EXTREMITIES: Normal range of motion. Lower Extremities appear equal in size. [id number] discomfort of the posterior calf with palpation SKIN: Warm, dry, no rash. NEURO: Alert and oriented x3. PSYCH: Normal mood and affect. Course Course Emergency Course: No DVT. Discharge home with anti-inflammatories. Vital Signs Vital signs: Vital Signs Temperature 98 F 11/24/24 07:45 Pulse Rate 88 11/24/24 07:45 Respiratory Rate 18 11/24/24 07:45 Blood Pressure 158/95 H 11/24/24 07:45 Pulse Oximetry 100 11/24/24 07:45 Oxygen Delivery Room Air 11/24/24 07:45 Temperature 98 F 11/24/24 07:45 Pulse Rate 88 11/24/24 07:45 Respiratory Rate 18 11/24/24 07:45 Blood Pressure 158/95 H 11/24/24 07:45 Pulse Oximetry 100 11/24/24 07:45 Oxygen Delivery Room Air 11/24/24 07:45 MDM - Extremity (Nontraumatic) Imaging Data Radiologist's impression: ITS Impressions Venous Doppler Study 11/24/24 08:23 IMPRESSION: 1: No lower extremity deep venous thrombosis. Discharge Plan Discharge Clinical Impression: Muscle strain of left lower leg Patient Disposition: Home Condition: Stable Instructions: Muscle Strain (ED), P.R.I.C.E. Treatment (ED) Additional Instructions: Please return to the emergency department if you develop severe and persistent chest pain, difficulty breathing, dizziness, leg swelling or if you are coughing up blood as these can be signs of a medical emergency. Please call your doctor for a follow up appointment to determine the need for further testing. Patient Language: [place] Island[place] Prescriptions: New naproxen 375 mg tablet 375 mg PO BID Qty: 14 0RF No Action atorvastatin 10 mg tablet 10 mg PO DAILY metformin 500 mg tablet extended release 24 hr 500 mg PO BID Follow-up/Referrals: Meño,MD Jung [Primary Care Provider] - 1 Week
[2024-11-24 08:40] VITALS: BP 141/87; PULSE 83; RESP 18; O2SAT 99
== END 2024-11-24 08:52 | disposition home or self-care (01) ==
PROVIDERS: Emergency Provider Emergency Medicine; PCP Internal Medicine
DX: S86.912A Strain of unspecified muscle(s) and tendon(s) at lower leg level, left leg, initial encounter (principal); Z86.718 Personal history of other venous thrombosis and embolism; E11.9 Type 2 diabetes mellitus without complications
CPT/HCPCS: 93971; 99284

== ENCOUNTER 2024-12-01 07:29 | Outpatient (CLI) | payer MEDICARE, SELFPAY ==
--- OUTSIDE RECORDS SUMMARY | 2024-12-01 07:35 | XMS_ITS | Encounter Summary ---
Author Organization [facility] Address [facility] [place] [address] Care Team Providers Care Second Cutter Name Role Phone Aliza Houston MD Primary Care Provider [phone] Encounter Details Date Type Department Care Team (Latest Contact Info) Description 12/30/2023 [place] Message Enc [facility] [place] [address] [place] [address] [address] [place] [address] [place] [address] [place] [address] [address] [place], [place] [id number] Blood pressure pills Social History Tobacco Use [...] documented as of this encounter Care Teams Second Cutter Relationship Specialty Start Date End Date Aliza Houston MD [facility] [address] PCP - General INTERNAL MEDICINE 12/07/23 documented as of this encounter
--- OUTSIDE RECORDS SUMMARY | 2024-12-01 07:35 | XMS_ITS | Clinical Summary ---
Author Organization [facility] Address [address] [facility] [place] [address] Care Team Providers Care Nailing Machine Feeder Name Role Phone Unavailable Primary Care Provider Unavailabl e Source Comments [facility],non-owned Affiliates and Associated Physician Practices is amultiple site organization consisting of ambulatory clinics and hospital sitesin [place], [place], [place] and [place]. This disclosure is being madepursuant to the Care Everywhere program and may not contain all information available regarding this patient. 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
--- OUTSIDE RECORDS SUMMARY | 2024-12-01 07:35 | XMS_ITS | Clinical Summary ---
Author Organization [facility] Care Team Providers Care Tile Power Shear Operator Name Role Phone Unavailable Primary Care [...]
--- OUTSIDE RECORDS SUMMARY | 2024-12-01 07:36 | XMS_ITS | Clinical Summary ---
Author Organization [facility] Address [address] [place] [address] Care Team Providers Care Assisted Sales Representative Name Role Phone Aliza Houston MD Primary Care Provider Allergies Active Allergy Reactions Criticality Noted Date [...] s:Hyperlipidemia associated with type 2 diabetes mellitus ([facility] HHS/HCC) TAKE 1 TABLET(10 MG) BY MOUTH DAILY 90 tablet 06/06/2024 Active metFORMIN ER (GLUCOPHAGE-XR) 500 MG 24 hr tabletIndication s:Type 2 diabetes mellitus with hyperglycemia, without long-term current use of insulin ([facility] HHS/HCC) TAKE 1 TABLET(500 MG) [...] exists Hemoglobin A1C 02/26/2024 08/26/2023 PHQ-2 (Physician [place]) 04/19/2024 12/27/2023 Annual Physical 12/26/2024 12/27/2023 Diabetes: [...] Med Group Scanned SCANNING Final Resu lt [facility] ONBASE * HEMOGLOBIN, GLYCOSYLATED (08/26/2023) HGB A1C 6.5 % 08/26/2023 us Default History Genericprovider LABORATORY Final Result from Last 3 Months or Most Recently Relevant to Health Maintenance Care Teams Assisted Sales Representative Relationship Specialty Start Date End Date Aliza Houston MD [facility] [address] [place] [id number] PCP - General INTERNAL MEDICINE 12/07/23
[2024-12-01 08:20] LABS: Hematocrit 31.2 % (37.0-47.0); Hemoglobin 9.9 g/dL (12.0-15.0); Immature Granulocyte Percent A 0.4 % (0-0.5); Lymphocytes Absolute Auto 1.52 K/mm3 (0.9-3.2); Mean Corpuscular HGB Conc 31.7 g/dl (32-36); Mean Corpuscular Hemoglobin 27.2 pg (26-34); Mean Corpuscular Volume 85.7 fl (80-100); Nucleated Red Blood Cells Absolute Auto 0.000 K/mm3 (0.0-0.012); Nucleated Red Blood Cells Perc 0.0 % (0.0-0.2); Platelet Count Result 286 k/mm3 (150-375); Red Blood Count 3.64 M/mm3 (4.2-5.4); White Blood Count 5.0 K/mm3 (4.5-10.0)
[2024-12-01 08:45] LABS: Alanine Aminotransferase 12 U/L (6-35); Albumin Level 4.4 g/dL (3.5-5.1); Alkaline Phosphatase 75 U/L (38-126); Anion Gap 9 mmol/L (4-12); Aspartate Amino Transferase 22 U/L (14-36); Bilirubin,Total 0.3 mg/dL (0.2-1.3); Blood Urea Nitrogen 8 mg/dL (7-17); Calcium 9.9 mg/dL (8.4-10.2); Carbon Dioxide 25 mmol/L (22-30); Chloride 101 mmol/L (98-107); Cholesterol 164 mg/dL (0-200); Estimated Glomerular Filt Rate > 60; Glucose 83 mg/dL (65-110); HDL Direct 71 mg/dL; Potassium 3.6 mmol/L (3.4-5.0); Sodium 135 mmol/L (137-145); Total Protein 8.0 g/dL (6.3-8.2); Triglycerides 64 mg/dL (<150)
[2024-12-01 09:34] LABS: Add Urine Microscopic? YES; Appearance Urine Clear (Clear); Glucose Urine UA Negative (Negative); Leukocyte Esterase Ur Negative LEU/UL (Negative); Nitrate Urine Negative (Negative); Non Pathogenic Casts 0-2; Specific Grav Ur 1.011 (1.001-1.035)
== END 2024-12-01 07:30 | disposition home or self-care (01) ==
PROVIDERS: PCP Internal Medicine; Visit Provider Internal Medicine
DX: R39.9 Unspecified symptoms and signs involving the genitourinary system (principal); I10 Essential (primary) hypertension
CPT/HCPCS: 36415; 80053; 80061; 81001; 85025; 87086

== ENCOUNTER 2025-03-24 07:41 | Outpatient (CLI) | payer OTHER, SELFPAY ==
[2025-03-24 09:12] LABS: Hematocrit 30.7 % (37.0-47.0); Hemoglobin 9.8 g/dL (12.0-15.0); Immature Granulocyte Percent A 0.5 % (0-0.5); Lymphocytes Absolute Auto 2.27 K/mm3 (0.9-3.2); Mean Corpuscular HGB Conc 31.9 g/dl (32-36); Mean Corpuscular Hemoglobin 28.2 pg (26-34); Mean Corpuscular Volume 88.5 fl (80-100); Nucleated Red Blood Cells Absolute Auto 0.000 K/mm3 (0.0-0.012); Nucleated Red Blood Cells Perc 0.0 % (0.0-0.2); Platelet Count Result 307 k/mm3 (150-375); Red Blood Count 3.47 M/mm3 (4.2-5.4); White Blood Count 5.7 K/mm3 (4.5-10.0)
[2025-03-24 09:24] LABS: Hemoglobin A1C 5.3 % (<5.7)
[2025-03-24 09:37] LABS: Alanine Aminotransferase 13 U/L (6-35); Albumin Level 4.3 g/dL (3.5-5.1); Alkaline Phosphatase 82 U/L (38-126); Anion Gap 7 mmol/L (4-12); Aspartate Amino Transferase 25 U/L (14-36); Bilirubin,Total 0.3 mg/dL (0.2-1.3); Blood Urea Nitrogen 16 mg/dL (7-17); Calcium 9.6 mg/dL (8.4-10.2); Carbon Dioxide 28 mmol/L (22-30); Chloride 101 mmol/L (98-107); Cholesterol 155 mg/dL (0-200); Estimated Glomerular Filt Rate > 60; Glucose 89 mg/dL (65-110); HDL Direct 62 mg/dL; Potassium 3.8 mmol/L (3.4-5.0); Sodium 136 mmol/L (137-145); Total Protein 7.9 g/dL (6.3-8.2); Triglycerides 102 mg/dL (<150)
[2025-03-24 09:42] LABS: MALB Creatinine Ratio 6.4 mg/g (0-30)
== END 2025-03-24 07:42 | disposition home or self-care (01) ==
LOC: ANHLAB 07:49
PROVIDERS: PCP Internal Medicine; Visit Provider Internal Medicine
DX: I10 Essential (primary) hypertension (principal); E11.9 Type 2 diabetes mellitus without complications
CPT/HCPCS: 36415; 80053; 80061; 82043; 83036; 85025